=== PATIENT | female | born 1980 | race American Indian/Alaskan Native ===

== ENCOUNTER 2016-08-04 03:19 | Emergency (ER) | payer BC ==
[2016-08-04] MEDS ORDERED: TORADOL IM ONE (04:25)
[2016-08-04] MEDS ORDERED: ZITHROMAX PO ONE (04:28)
[2016-08-04] MEDS ORDERED: NORCO 5/325 ONE (04:33)
[2016-08-04] MEDS ORDERED: PERCOCET 5/325 PO ONE (04:36)
[2016-08-04 04:53] VITALS: BP 128/90
--- NOTE | 2016-08-04 05:03 | Emergency Department Report ---
ED ENT HPI - General Chief complaint: Upper Respiratory Infection Stated complaint: HEADACHE/FACIAL/EAR PAIN Time Seen by Provider: 08/04/16 04:12 Source: patient Mode of arrival: Ambulatory Limitations: No Limitations - History of Present Illness Initial comments: 36 yo female with no significant past medical history presents to the hospital complaining of right ear pain 2 days. Pain became severe today and radiating to right face, eye, and neck. Pain is constant, 8/10 intensity, worse with palpation. No reports of fever, trauma, or nausea or vomiting. Pt does not swim - Related Data Previous Rx's Medication Instructions Recorded Last Taken Type Amoxicillin/K Clav Tab [Augmentin 1 tab PO Q12HR #20 tab 07/06/15 Unknown Rx 875 mg] Loratadine [Claritin] 10 mg PO DAILY #30 tablet 07/06/15 Unknown Rx Prednisone [predniSONE 10 mg 10 mg PO .TAPER #1 tab.ds.pk 07/06/15 Unknown Rx (6-Day Pack, 21 Tabs)] Promethazine /Codeine 5 ml PO Q6H PRN #120 ml 07/06/15 Unknown Rx [Phenergan/Codeine 6.25-10 mg/5 ml] Azithromycin [Zithromax Z-LAYTON] 1 dose PO DAILY 5 Days 08/04/16 Unknown Rx Ibuprofen [Motrin] 800 mg PO Q8HR PRN #30 tablet 08/04/16 Unknown Rx Ofloxacin 0.3% [Floxin Otic] 10 drop OD DAILY #1 bottle 08/04/16 Unknown Rx Oxycodone HCl/Acetaminophen 1 each PO Q4-6H PRN #20 tablet 08/04/16 Unknown Rx [Percocet 10/325 mg] Allergies Allergy/AdvReac Type Severity Reaction Status Date / Time aspirin Allergy Swelling Verified 11/05/13 21:15 codeine Allergy Swelling Verified 11/05/13 21:15 Penicillins Allergy Swelling Verified 08/04/16 03:27 ED Dental HPI - General Chief complaint: Upper Respiratory Infection Stated complaint: HEADACHE/FACIAL/EAR PAIN Time Seen by Provider: 08/04/16 04:12 Source: patient Mode of arrival: Ambulatory Limitations: No Limitations - Related Data Previous Rx's Medication Instructions Recorded Last Taken Type Amoxicillin/K Clav Tab [Augmentin 1 tab PO Q12HR #20 tab 07/06/15 Unknown Rx 875 mg] Loratadine [Claritin] 10 mg PO DAILY #30 tablet 07/06/15 Unknown Rx Prednisone [predniSONE 10 mg 10 mg PO .TAPER #1 tab.ds.pk 07/06/15 Unknown Rx (6-Day Pack, 21 Tabs)] Promethazine /Codeine 5 ml PO Q6H PRN #120 ml 07/06/15 Unknown Rx [Phenergan/Codeine 6.25-10 mg/5 ml] Azithromycin [Zithromax Z-LAYTON] 1 dose PO DAILY 5 Days 08/04/16 Unknown Rx Ibuprofen [Motrin] 800 mg PO Q8HR PRN #30 tablet 08/04/16 Unknown Rx Ofloxacin 0.3% [Floxin Otic] 10 drop OD DAILY #1 bottle 08/04/16 Unknown Rx Oxycodone HCl/Acetaminophen 1 each PO Q4-6H PRN #20 tablet 08/04/16 Unknown Rx [Percocet 10/325 mg] Allergies Allergy/AdvReac Type Severity Reaction Status Date / Time aspirin Allergy Swelling Verified 11/05/13 21:15 codeine Allergy Swelling Verified 11/05/13 21:15 Penicillins Allergy Swelling Verified 08/04/16 03:27 ED Review of Systems ROS: Stated complaint: HEADACHE/FACIAL/EAR PAIN Other details as noted in HPI Comment: All other systems reviewed and negative Other: Constitutional: No fevers chills Eyes: No eye pain visual changes ENT:as per hpi Neck: as per hpi Respiratory: Denies cough wheezing shortness of breath Cardiovascular: Denies chest pain, palpitations, syncope GI: Denies abdominal pain, nausea, vomiting, diarrhea : Denies dysuria Musculoskeletal: Denies back pain Skin: Denies rash Neurologic: Denies headache, numbness, weakness Psychiatric: Denies suicidal ideation, hallucinations ED Past Medical Hx - Past Medical History Previous Medical History?: No Additional medical history: ectopic preg, Vaginal delivery x 1 - Surgical History Past Surgical History?: Yes Additional Surgical History: ectopic - Social History Smoking Status: Current Some Day Smoker Substance Use Type: Alcohol - Medications Home Medications: Home Medications Medication Instructions Recorded Confirmed Last Taken Type Amoxicillin/K Clav Tab [Augmentin 1 tab PO Q12HR #20 tab 07/06/15 Unknown Rx 875 mg] Loratadine [Claritin] 10 mg PO DAILY #30 tablet 07/06/15 Unknown Rx Prednisone [predniSONE 10 mg 10 mg PO .TAPER #1 tab.ds.pk 07/06/15 Unknown Rx (6-Day Pack, 21 Tabs)] Promethazine /Codeine 5 ml PO Q6H PRN #120 ml 07/06/15 Unknown Rx [Phenergan/Codeine 6.25-10 mg/5 ml] Azithromycin [Zithromax Z-LAYTON] 1 dose PO DAILY 5 Days 08/04/16 Unknown Rx Ibuprofen [Motrin] 800 mg PO Q8HR PRN #30 tablet 08/04/16 Unknown Rx Ofloxacin 0.3% [Floxin Otic] 10 drop OD DAILY #1 bottle 08/04/16 Unknown Rx Oxycodone HCl/Acetaminophen 1 each PO Q4-6H PRN #20 tablet 08/04/16 Unknown Rx [Percocet 10/325 mg] ED Physical Exam - General Limitations: No Limitations - Other Other exam information: General: No limitations, patient is alert in no acute distress Head exam: Atraumatic, normocephalic Eyes exam: Normal appearance ENT: Moist mucous membrane, tenderness to palpation and pulling of the right ear. Tenderness during examination of the ear canal. Mild erythema noted. Mild erythema to the TM. tenderness extends along right lateral neck/ Sternocleidomastoid muscle. No swelling, erythema, or warmth noted. Neck exam: Normal inspection, full range of motion, no meningismus nontender Respiratory exam: Clear to auscultation bilateral, no wheezes, rales, crackles Cardiovascular: Normal rate and rhythm, normal heart sounds Abdomen: Soft, nondistended, and nontender, with normal bowel sounds, no rebound, or guarding Extremity: Full range of motion normal inspection no deformity Back: Normal Inspection, full range of motion, no tenderness Neurologic: Alert, oriented x3, cranial nerves intact, no motor or sensory deficit Psychiatric: normal affect, normal mood Skin: Warm, dry, intact ED Course Vital Signs 08/04/16 08/04/16 08/04/16 03:27 04:48 04:51 Temperature 97.7 F 97.7 F Pulse Rate 101 H 73 Respiratory 20 20 20 Rate Blood Pressure 146/104 Blood Pressure 128/90 [Left] O2 Sat by Pulse 100 97 Oximetry 08/04/16 04:55 Temperature Pulse Rate Respiratory 20 Rate Blood Pressure Blood Pressure [Left] O2 Sat by Pulse 97 Oximetry - Reevaluation(s) Reevaluation #1: 08/04/16 05:01 Patient given IM Toradol since she states she can tolerate Motrin. No allergic reaction noted. Patient also given Percocet 5 mg and will have her pick her up from the hospital since she drove. Gentamicin also ordered. ED Medical Decision Making - Medical Decision Making Plan to treat with antibiotic for otitis media and external given significant tenderness to right ear canal. Percocet will be prescribed for pain. NO signs of allergic reaction at this time - Differential Diagnosis otitis media/externa, sinusitis, mastoiditis Critical Care Time: No Critical care attestation.: If time is entered above; I have spent that time in minutes in the direct care of this critically ill patient, excluding procedure time. ED Disposition Clinical Impression: Right ear pain, Otitis media Otitis externa Qualifiers: Laterality: right Disposition: DISCHARGED TO HOME OR SELFCARE Is pt being admited?: No Does the pt Need Aspirin: No Condition: Stable Instructions: Earache (ED) Additional Instructions: Take the medication as prescribed. Return if symptoms worsen. Prescriptions: Azithromycin [Zithromax Z-LAYTON] 1 dose PO DAILY 5 Days Ibuprofen [Motrin] 800 mg PO Q8HR PRN #30 tablet PRN Reason: Pain Ofloxacin 0.3% [Floxin Otic] 10 drop OD DAILY #1 bottle Oxycodone HCl/Acetaminophen [Percocet 10/325 mg] 1 each PO Q4-6H PRN #20 tablet PRN Reason: Pain Referrals: PRIMARY CARE, [Primary Care Provider] - 3-5 Days MARIELA HENRY MD [Staff Physician] - 2-3 Days (Ear nose and throat doctor ) Time of Disposition: 05:48
== END 2016-08-04 06:38 | disposition home or self-care (01) ==
LOC: ED 03:19
DX: H60.91 Unspecified otitis externa, right ear (principal); H66.91 Otitis media, unspecified, right ear; F17.200 Nicotine dependence, unspecified, uncomplicated; Z88.6 Allergy status to analgesic agent; Z88.0 Allergy status to penicillin
CPT/HCPCS: 93005; 93010; 96372; 99282; J1885

== ENCOUNTER 2016-09-20 15:35 | Emergency (ER) | payer BC ==
[2016-09-20 15:53] VITALS: BP 122/87
--- NOTE | 2016-09-20 16:21 | Emergency Department Report ---
Entered by ALFREDA MCKAY, acting as scribe for ISH RICHARDSON NP. Chief Complaint: Nausea/Vomiting/Diarrhea Stated Complaint: NAUSEA/VOMITTING/HEADACHE/CHEST PAIN/BODY PAIN Time Seen by Provider: 09/20/16 16:08 - HPI History of Present Illness: 36 year old female who is non toxic appearing, in no acute distress, presents with c/o mid-sternal chest pain that began this morning. She describes pain as sharp, heaviness that radiates to right shoulder. Associated symptoms include N/ V, body aches. She also c/o gradual onset right occipital SANCHEZ, non thunderclap, not worse SANCHEZ of her life. Pt reports Hx of similar chest pain and frequent SANCHEZ. Denies visual changes, shortness of breath. - ROS Review of Systems: Reports midsternal chest pain, radiated pain to right shoulder, N/V, gradual onset right occipital SANCHEZ, body aches. Denies visual changes, shortness of breath. - Exam Vital Signs: Vital Signs 09/20/16 15:47 Temperature 98.6 F Pulse Rate 107 H Respiratory 20 Rate Blood Pressure 122/87 O2 Sat by Pulse 100 Oximetry Physical Exam: Constitutional: Non toxic appearing, NAD. Cardiovascular: Normal rate and rhythm with normal S1/S2 sounds. Chest pain is not reproducible with palpation. No edema. Respiratory: No respiratory distress. Lung sounds clear to auscultation bilaterally. MSE screening note: Focused history and physical exam performed. Due to findings the following was ordered: EKG, CCK, Troponin, CBC, CMP, UA, serum HCG qualitative No ASA ordered due to allergy. ED Disposition for MSE Condition: Stable This documentation as recorded by the scribe,ALFREDA MCKAY,accurately reflects the service I personally performed and the decisions made by DYLAN dixon MARTIN, MARIA DE JESUS.
[2016-09-20 17:14] LABS: Basophils % (Auto) 0.2 % (0.0-1.8); Hemoglobin 14.4 gm/dl (10.1-14.3); Mean Corpuscular HGB Conc 34 % (30-34); Mean Corpuscular Hemoglobin 32 pg (28-32); Mean Corpuscular Volume 96 fl (79-97); Platelet Count 203 K/mm3 (140-440); Red Blood Count 4.48 M/mm3 (3.65-5.03); Red Cell Distribution Width 13.2 % (13.2-15.2); White Blood Count 5.2 K/mm3 (4.5-11.0)
[2016-09-20 17:22] LABS: Creatine Kinase MB 1.1 ng/mL (0.0-4.0)
[2016-09-20 17:24] LABS: Alanine Aminotransferase 12 units/L (7-56); Albumin 4.4 g/dL (3.9-5); Albumin/Globulin Ratio 1.5 %; Alkaline Phosphatase 70 units/L (35-129); Anion Gap 19 mmol/L; BUN/Creatinine Ratio 16.66; Blood Urea Nitrogen 10 mg/dL (7-17); Calcium 9.4 mg/dL (8.4-10.2); Carbon Dioxide 23 mmol/L (22-30); Chloride 102.4 mmol/L (98-107); Creatine Kinase 124 units/L (30-135); Glucose 91 mg/dL (65-100); Potassium 3.9 mmol/L (3.6-5.0); Sodium 140 mmol/L (137-145); Total Protein 7.3 g/dL (6.3-8.2)
[2016-09-20 17:33] LABS: Bilirubin,Urine NEG (Negative); Blood,Urine NEG (Negative); Ketones,Urine NEG (Negative); Leukocyte Esterase,Urine NEG (Negative); Mucus,Urine 2+ /HPF; Nitrite,Urine NEG (Negative); Protein,Urine <15 mg/dL mg/dL (Negative); Urobilinogen,Urine < 2.0 mg/dL (<2.0); WBC,Urine < 1.0 /HPF (0.0-6.0)
--- NOTE | 2016-09-22 19:54 | ED Elopement Review ---
ED Pt Elopement review - Results review Lab results: Laboratory Tests 09/20/16 09/20/16 09/20/16 16:25 16:25 16:25 WBC 5.2 RBC 4.48 Hgb 14.4 H Hct 43.0 H MCV 96 MCH 32 MCHC 34 RDW 13.2 Plt Count 203 Lymph % (Auto) 14.3 [place] % (Auto) 3.0 Eos % (Auto) 0.0 Baso % (Auto) 0.2 Lymph # 0.7 L [place] # 0.2 Eos # 0.0 Baso # 0.0 Seg Neutrophils % 82.5 H Seg Neutrophils # 4.3 Sodium 140 Potassium 3.9 Chloride 102.4 Carbon Dioxide 23 Anion Gap 19 BUN 10 Creatinine 0.6 L Estimated GFR > 60 BUN/Creatinine Ratio 16.66 Glucose 91 Calcium 9.4 Total Bilirubin 1.10 AST 20 ALT 12 Alkaline Phosphatase 70 Total Creatine Kinase 124 CK-MB (CK-2) 1.1 CK-MB (CK-2) Rel Index 0.8 Troponin T < 0.010 Total Protein 7.3 Albumin 4.4 Albumin/Globulin Ratio 1.5 HCG, Qual Negative Urine Color Urine Turbidity Urine pH Ur Specific [place] Urine Protein Urine Glucose (UA) Urine Ketones Urine Blood Urine Nitrite Urine Bilirubin Urine Urobilinogen Ur Leukocyte Esterase Urine WBC (Auto) Urine RBC (Auto) U Epithel Cells (Auto) Urine Mucus 09/20/16 16:54 WBC RBC Hgb Hct MCV MCH MCHC RDW Plt Count Lymph % (Auto) [place] % (Auto) Eos % (Auto) Baso % (Auto) Lymph # [place] # Eos # Baso # Seg Neutrophils % Seg Neutrophils # Sodium Potassium Chloride Carbon Dioxide Anion Gap BUN Creatinine Estimated GFR BUN/Creatinine Ratio Glucose Calcium Total Bilirubin AST ALT Alkaline Phosphatase Total Creatine Kinase CK-MB (CK-2) CK-MB (CK-2) Rel Index Troponin T Total Protein Albumin Albumin/Globulin Ratio HCG, Qual Urine Color Yellow Urine Turbidity Clear Urine pH 5.0 Ur Specific [place] 1.027 Urine Protein <15 mg/dl Urine Glucose (UA) Neg Urine Ketones Neg Urine Blood Neg Urine Nitrite Neg Urine Bilirubin Neg Urine Urobilinogen < 2.0 Ur Leukocyte Esterase Neg Urine WBC (Auto) < 1.0 Urine RBC (Auto) 3.0 U Epithel Cells (Auto) 8.0 Urine Mucus 2+ - Call Back decision Pt Call Back Decision: No action required
== END 2016-09-21 02:07 | disposition left against medical advice (07) ==
LOC: ED 15:35
DX: R07.2 Precordial pain (principal); M79.1 Myalgia; R11.2 Nausea with vomiting, unspecified; Z53.21 Procedure and treatment not carried out due to patient leaving prior to being seen by health care provider
CPT/HCPCS: 36415; 80053; 81001; 82550; 82553; 84484; 84703; 85025; 93005; 93010

== ENCOUNTER 2016-09-21 10:11 | Emergency (ER) | payer BC ==
[2016-09-21 10:51] LABS: Basophils % (Auto) 0.9 % (0.0-1.8); Eosinophils % (Auto) 1.3 % (0.0-4.3); Hematocrit 41.9 % (30.3-42.9); Hemoglobin 13.8 gm/dl (10.1-14.3); Mean Corpuscular HGB Conc 33 % (30-34); Mean Corpuscular Hemoglobin 33 pg (28-32); Mean Corpuscular Volume 99 fl (79-97); Platelet Count 199 K/mm3 (140-440); Red Blood Count 4.25 M/mm3 (3.65-5.03); Red Cell Distribution Width 13.6 % (13.2-15.2); White Blood Count 2.8 K/mm3 (4.5-11.0)
[2016-09-21 12:07] LABS: Bilirubin,Urine NEG (Negative); Blood,Urine NEG (Negative); Ketones,Urine TR mg/dL (Negative); Leukocyte Esterase,Urine LG (Negative); Mucus,Urine 3+ /HPF; Nitrite,Urine NEG (Negative)
[2016-09-21 12:55] LABS: Alanine Aminotransferase 16 units/L (7-56); Albumin 4.3 g/dL (3.9-5); Albumin/Globulin Ratio 1.5 %; Alkaline Phosphatase 62 units/L (35-129); Anion Gap 17 mmol/L; BUN/Creatinine Ratio 14.28; Blood Urea Nitrogen 10 mg/dL (7-17); Calcium 9.4 mg/dL (8.4-10.2); Carbon Dioxide 23 mmol/L (22-30); Chloride 102.5 mmol/L (98-107); Glucose 95 mg/dL (65-100); Lipase 20 units/L (13-60); Potassium 3.8 mmol/L (3.6-5.0); Sodium 139 mmol/L (137-145); Total Protein 7.2 g/dL (6.3-8.2)
[2016-09-21] MEDS ORDERED: NACL ONE (17:57)
[2016-09-21] MEDS ORDERED: ZOFRAN IV ONE (17:57)
[2016-09-21] MEDS ORDERED: NACL 0.9% 1000 ML 1,000 ML IV ONE (17:57)
--- NOTE | 2016-09-21 18:07 | Emergency Department Report ---
HPI - General Chief Complaint: Abdominal Pain Time Seen by Provider: 09/21/16 17:48 - HPI HPI: Room 5 The patient is a 36-year-old female presenting with a chief complaint of body aches nausea vomiting and diarrhea. Patient states her symptoms began 2 days ago with a right-sided headache. Patient states that then developed body aches all over blurred vision. Patient says she didn't develop nausea vomiting and diarrhea. She states she has vomited over 10 times daily and is unable to keep anything down. Patient missed a fever 102F. Patient states she came to the ED yesterday but was not seen her left secondary to the long wait. The patient returns today with the same symptoms. Location: [see above] Duration: [see above] Quality: Aches Severity: Moderate Modifying factors: [see above] Context: [see above] Mode of transportation: The patient drove herself to the emergency department and there are no visitors present ED Past Medical Hx - Past Medical History Previous Medical History?: Yes Additional medical history: ectopic preg. 2000, Vaginal delivery x 1 - Surgical History Past Surgical History?: Yes Additional Surgical History: ectopic - Family History Family history: no significant - Social History Smoking Status: Current Some Day Smoker Substance Use Type: None (denies illicit drug use), Alcohol (occasional) - Medications Home Medications: Home Medications Medication Instructions Recorded Confirmed Last Taken Type Diphenoxylate HCl/Atropine 1 each PO QID PRN #20 tablet 09/21/16 Unknown Rx [Lomotil 2.5-0.025 mg Tablet] HYDROcodone/APAP 5-325 [Orient 1 - 2 each PO Q6HR PRN #14 tablet 09/21/16 Unknown Rx 5/325] Ondansetron [Zofran ODT TAB] 8 mg PO Q8HR #20 tab.rapdis 09/21/16 Unknown Rx Promethazine [Phenergan] [address] Q6HR PRN #5 supp.rect 09/21/16 Unknown Rx Sulfamethoxazole/Trimethoprim 1 each PO BID #14 tablet 09/21/16 Unknown Rx [Bactrim DS TAB] ED Review of Systems ROS: Stated complaint: BODY PAIN/NAUSEA/VOMITING Other details as noted in HPI Comment: All other systems reviewed and negative Constitutional: fever Eyes: denies: eye pain, eye discharge, vision change ENT: denies: ear pain, throat pain Respiratory: denies: cough, shortness of breath, wheezing Cardiovascular: denies: chest pain, palpitations Endocrine: no symptoms reported Gastrointestinal: abdominal pain, nausea, vomiting, diarrhea Genitourinary: denies: urgency, dysuria, discharge Musculoskeletal: myalgia Skin: denies: rash, lesions Neurological: denies: headache, weakness, paresthesias Psychiatric: denies: anxiety, depression Hematological/Lymphatic: denies: easy bleeding, easy bruising Physical Exam - Physical Exam Vital Signs: Vital Signs 09/21/16 10:30 Temperature 97.5 F L Pulse Rate 90 Respiratory 18 Rate Blood Pressure 120/90 O2 Sat by Pulse 99 Oximetry Physical Exam: GENERAL: The patient is well-developed well-nourished female lying on stretcher appearing to be in mild discomfort. [] HEENT: Normocephalic. Atraumatic. Extraocular motions are intact. Patient has moist mucous membranes. NECK: Supple. No meningitic signs are noted. No nuchal rigidity CHEST/LUNGS: Clear to auscultation. There is no respiratory distress noted. HEART/CARDIOVASCULAR: Regular. There is no tachycardia. There is no gallop rub or murmur. ABDOMEN: Abdomen is soft, mild epigastric tenderness to palpation. No rebound or guarding. No tenderness elsewhere in the abdomen. Patient has normal bowel sounds. There is no abdominal distention. SKIN: There is no rash. There is no edema. There is no diaphoresis. NEURO: The patient is awake, alert, and oriented. The patient is cooperative. The patient has no focal neurologic deficits. The patient has normal speech and cranial nerves II through XII grossly intact, no drift MUSCULOSKELETAL: There is no evidence of acute injury. ED Course Vital Signs 09/21/16 10:30 Temperature 97.5 F L Pulse Rate 90 Respiratory 18 Rate Blood Pressure 120/90 O2 Sat by Pulse 99 Oximetry - Reevaluation(s) Reevaluation #1: 09/21/16 21:17 Patient tolerating po ED Medical Decision Making - Lab Data Result diagrams: 09/21/16 10:37 09/21/16 10:37 Laboratory Tests 09/21/16 09/21/16 09/21/16 10:37 10:37 10:37 WBC 2.8 L RBC 4.25 Hgb 13.8 Hct 41.9 MCV 99 H D MCH 33 H MCHC 33 RDW 13.6 Plt Count 199 Lymph % (Auto) 51.5 H [place] % (Auto) 9.4 H Eos % (Auto) 1.3 Baso % (Auto) 0.9 Lymph # 1.4 [place] # 0.3 Eos # 0.0 Baso # 0.0 Seg Neutrophils % 36.9 L Seg Neutrophils # 1.0 L Sodium 139 Potassium 3.8 Chloride 102.5 Carbon Dioxide 23 Anion Gap 17 BUN 10 Creatinine 0.7 Estimated GFR > 60 BUN/Creatinine Ratio 14.28 Glucose 95 Calcium 9.4 Total Bilirubin 0.60 AST 25 ALT 16 Alkaline Phosphatase 62 Total Creatine Kinase 82 CK-MB (CK-2) < 1.0 CK-MB (CK-2) Rel Index 1.2 Troponin T Total Protein 7.2 Albumin 4.3 Albumin/Globulin Ratio 1.5 Lipase 20 Urine Color Urine Turbidity Urine pH Ur Specific [place] Urine Protein Urine Glucose (UA) Urine Ketones Urine Blood Urine Nitrite Urine Bilirubin Urine Urobilinogen Ur Leukocyte Esterase Urine WBC (Auto) Urine RBC (Auto) U Epithel Cells (Auto) Urine Mucus Urine HCG, Qual 09/21/16 09/21/16 10:37 Unknown WBC RBC Hgb Hct MCV MCH MCHC RDW Plt Count Lymph % (Auto) [place] % (Auto) Eos % (Auto) Baso % (Auto) Lymph # [place] # Eos # Baso # Seg Neutrophils % Seg Neutrophils # Sodium Potassium Chloride Carbon Dioxide Anion Gap BUN Creatinine Estimated GFR BUN/Creatinine Ratio Glucose Calcium Total Bilirubin AST ALT Alkaline Phosphatase Total Creatine Kinase CK-MB (CK-2) CK-MB (CK-2) Rel Index Troponin T < 0.010 Total Protein Albumin Albumin/Globulin Ratio Lipase Urine Color [place] Urine Turbidity Cloudy Urine pH 5.0 Ur Specific [place] 1.031 H Urine Protein 30 mg/dl Urine Glucose (UA) Neg Urine Ketones Tr Urine Blood Neg Urine Nitrite Neg Urine Bilirubin Neg Urine Urobilinogen 2.0 Ur Leukocyte Esterase Lg Urine WBC (Auto) 16.0 H Urine RBC (Auto) 15.0 U Epithel Cells (Auto) 36.0 H Urine Mucus 3+ Urine HCG, Qual Negative - Differential Diagnosis pancreatitis, gastroenteritis, peptic ulcer disease, ICH Critical care attestation.: If time is entered above; I have spent that time in minutes in the direct care of this critically ill patient, excluding procedure time. ED Disposition Clinical Impression: Gastroenteritis, UTI (urinary tract infection), Leukopenia Disposition: DISCHARGED TO HOME OR SELFCARE Is pt being admited?: No Does the pt Need Aspirin: No Condition: Stable Instructions: Abdominal Pain (ED), Acute Nausea and Vomiting (ED), Gastroenteritis (ED) Additional Instructions: Return to the emergency department immediately should you develop worsening symptoms, fever, inability to tolerate food or liquid or any other concerns. Prescriptions: Diphenoxylate HCl/Atropine [Lomotil 2.5-0.025 mg Tablet] 1 each PO QID PRN #20 tablet PRN Reason: Diarrhea HYDROcodone/APAP 5-325 [Orient 5/325] 1 - 2 each PO Q6HR PRN #14 tablet PRN Reason: Pain Ondansetron [Zofran ODT TAB] 8 mg PO Q8HR #20 tab.rapdis Promethazine [Phenergan] [address] Q6HR PRN #5 supp.rect PRN Reason: Vomiting Sulfamethoxazole/Trimethoprim [Bactrim DS TAB] 1 each PO BID #14 tablet Referrals: HO MALDONADO MD [Staff Physician] - 3-5 Days (Dr. Maldonado is a primary physician. Please follow up with him to be established as a patient) HUGH LYNCH MD [Staff Physician] - 3-5 Days (Dex is a harp maker. Please follow up with him for further evaluation) AVERY ALFARO MD [Staff Physician] - 3-5 Days ( is a dining chair seat cushion trimmer. Please follow up with him for further evaluation of your low white blood cell count (leukopenia).) Time of Disposition: 21:24
[2016-09-21 18:47] LABS: Creatine Kinase 82 units/L (30-135)
[2016-09-21 18:57] LABS: Creatine Kinase MB < 1.0 ng/mL (0.0-4.0)
--- NOTE | 2016-09-21 19:05 | Cat Scan Report ---
FINAL REPORT EXAM: CT HEAD/BRAIN WO CON HISTORY: headache nausea vomiting TECHNIQUE: CT imaging acquired through the head without intravenous contrast. Transaxial reformations are provided. PRIORS: None. FINDINGS: The ventricles, cisterns and sulci are normal. No intraparenchymal or extra-axial mass, hemorrhage, or mass effect. [place] and white-matter differentiation is normal. Normal spherical shape of the globes. Paranasal sinuses and mastoid air cells are clear. No skull or facial fracture visualized. IMPRESSION: No acute intracranial abnormality.
--- NOTE | 2016-09-21 19:11 | Cat Scan Report ---
FINAL REPORT EXAM: CT ABDOMEN PELVIS W CON HISTORY: epigastric abdominal pain intractable n/v TECHNIQUE: CT images are acquired through the Abdomen and Pelvis arterial and delayed phases following intravenous administration of contrast. Transaxial, coronal and sagittal reformations are provided. PRIORS: None FINDINGS: Partially visualized intrathoracic contents are unremarkable. The liver, gallbladder, pancreas, spleen, and adrenal glands are normal. Kidneys show no worrisome lesions, hydronephrosis, or calculi. Urinary bladder is normal. Small and large bowel are normal in caliber. There is fluid within the ascending and transverse colon. No pericolonic stranding or edema. Appendix is normal. No free air, free fluid, or lymphadenopathy identified. Aorta is normal in course and caliber. Anteverted uterus. Small volume of pelvic ascites is likely physiologic. Functional left ovarian cysts Superficial soft tissues are unremarkable. No acute or aggressive appearing skeletal findings. IMPRESSION: Fluid within the colon may be infectious or inflammatory in etiology. No pericolonic stranding or focal fluid collection to suggest abscess formation. No pneumoperitoneum.
[2016-09-21] MEDS ORDERED: TORADOL IV ONE (19:20)
[2016-09-21 21:38] VITALS: BP 105/63
== END 2016-09-21 21:51 | disposition home or self-care (01) ==
LOC: ED 10:11
DX: R19.7 Diarrhea, unspecified (principal); K52.9 Noninfective gastroenteritis and colitis, unspecified; N39.0 Urinary tract infection, site not specified; D72.819 Decreased white blood cell count, unspecified; F17.200 Nicotine dependence, unspecified, uncomplicated
CPT/HCPCS: 36415; 70450; 74177; 80053; 81001; 81025; 82550; 82553; 83690; 84484; 85025; 96361; 96374; 96375; 99284; J1885; J2405; J7030; Q9967

== ENCOUNTER 2017-05-26 21:46 | Emergency (ER) | payer BC ==
--- NOTE | 2017-05-26 22:58 | Emergency Department Report ---
ED Abdominal Pain HPI - General Chief Complaint: Abdominal Pain Stated Complaint: BODYACHE Time Seen by Provider: 05/26/17 22:55 Source: patient Mode of arrival: Ambulatory Limitations: No Limitations - History of Present Illness Initial Comments: Patient is a 37-year-old female who presents to emergency room with abdominal pain 1 day. Patient complains of nausea, vomiting, headache, and low-grade fever. He states pain is worsening. She states LMP is 6 weeks ago. MD Complaint: abdominal pain -: Sudden Location: LLQ, epigastric Radiation: none Severity: severe Severity scale (0 -10): 10 Quality: stabbing Consistency: constant Improves With: rest Worsens With: movement Associated Symptoms: nausea, vomiting - Related Data LMP (females 10-50): other (6 weeks ago. Patient is normally regular) Previous Rx's Medication Instructions Recorded Last Taken Type Diphenoxylate HCl/Atropine 1 each PO QID PRN #20 tablet 09/21/16 Unknown Rx [Lomotil 2.5-0.025 mg Tablet] HYDROcodone/APAP 5-325 [[place] 1 - 2 each PO Q6HR PRN #14 tablet 09/21/16 Unknown Rx 5/325] Ondansetron [Zofran ODT TAB] 8 mg PO Q8HR #20 tab.rapdis 09/21/16 Unknown Rx Promethazine [Phenergan] 25 mg MS Q6HR PRN #5 supp.rect 09/21/16 Unknown Rx Sulfamethoxazole/Trimethoprim 1 each PO BID #14 tablet 09/21/16 Unknown Rx [Bactrim DS TAB] Ciprofloxacin HCl [Cipro] 500 mg PO Q12HR 10 Days #20 tablet 05/27/17 Unknown Rx HYDROcodone/ACETAMINOPHEN [[place] 1 each PO Q6HR PRN #12 tablet 05/27/17 Unknown Rx 5-325 Tablet] Ondansetron [Zofran Odt] 4 mg PO Q8HR PRN #15 tab.rapdis 05/27/17 Unknown Rx Allergies Allergy/AdvReac Type Severity Reaction Status Date / Time aspirin Allergy Swelling Verified 11/05/13 21:15 codeine Allergy Swelling Verified 11/05/13 21:15 Penicillins Allergy Swelling Verified 08/04/16 03:27 ED Review of Systems ROS: Stated complaint: BODYACHE Other details as noted in HPI Comment: All other systems reviewed and negative Constitutional: no symptoms reported, fever Eyes: denies: eye pain, eye discharge, vision change ENT: denies: ear pain, throat pain Respiratory: denies: cough, shortness of breath, wheezing Cardiovascular: denies: chest pain, palpitations Endocrine: no symptoms reported Gastrointestinal: as per HPI, abdominal pain, nausea, vomiting. denies: diarrhea Genitourinary: denies: urgency, dysuria, discharge Musculoskeletal: denies: back pain, joint swelling, arthralgia Skin: denies: rash, lesions Neurological: denies: headache, weakness, paresthesias Psychiatric: denies: anxiety, depression Hematological/Lymphatic: denies: easy bleeding, easy bruising ED Past Medical Hx - Past Medical History Previous Medical History?: No Additional medical history: ectopic preg. 2001, Vaginal delivery x 1 - Surgical History Past Surgical History?: Yes Additional Surgical History: ectopic - Family History Family history: no significant - Social History Smoking Status: Never Smoker Substance Use Type: None - Medications Home Medications: Home Medications Medication Instructions Recorded Confirmed Last Taken Type Diphenoxylate HCl/Atropine 1 each PO QID PRN #20 tablet 09/21/16 Unknown Rx [Lomotil 2.5-0.025 mg Tablet] HYDROcodone/APAP 5-325 [[place] 1 - 2 each PO Q6HR PRN #14 tablet 09/21/16 Unknown Rx 5/325] Ondansetron [Zofran ODT TAB] 8 mg PO Q8HR #20 tab.rapdis 09/21/16 Unknown Rx Promethazine [Phenergan] 25 mg MS Q6HR PRN #5 supp.rect 09/21/16 Unknown Rx Sulfamethoxazole/Trimethoprim 1 each PO BID #14 tablet 09/21/16 Unknown Rx [Bactrim DS TAB] Ciprofloxacin HCl [Cipro] 500 mg PO Q12HR 10 Days #20 tablet 05/27/17 Unknown Rx HYDROcodone/ACETAMINOPHEN [[place] 1 each PO Q6HR PRN #12 tablet 05/27/17 Unknown Rx 5-325 Tablet] Ondansetron [Zofran Odt] 4 mg PO Q8HR PRN #15 tab.rapdis 05/27/17 Unknown Rx ED Physical Exam - General Limitations: No Limitations General appearance: alert, in no apparent distress - Head Head exam: Present: atraumatic, normocephalic - Eye Eye exam: Present: normal appearance - ENT ENT exam: Present: mucous membranes moist - Neck Neck exam: Present: normal inspection - Respiratory Respiratory exam: Present: normal lung sounds bilaterally. Absent: respiratory distress - Cardiovascular Cardiovascular Exam: Present: regular rate, normal rhythm. Absent: systolic murmur, diastolic murmur, rubs, gallop - GI/Abdominal GI/Abdominal exam: Present: soft, tenderness (epigastric tenderness and left lower quadrant tenderness), normal bowel sounds - Extremities Exam Extremities exam: Present: normal inspection - Back Exam Back exam: Present: normal inspection - Neurological Exam Neurological exam: Present: alert, oriented X3 - Psychiatric Psychiatric exam: Present: normal affect, normal mood - Skin Skin exam: Present: warm, dry, intact, normal color. Absent: rash ED Course Vital Signs 05/26/17 05/26/17 05/27/17 22:02 22:48 00:27 Temperature 98.6 F 99.4 F 100.1 F H Pulse Rate 117 H 94 H 93 H Respiratory 16 16 16 Rate Blood Pressure 129/83 Blood Pressure 109/81 118/79 [Right] O2 Sat by Pulse 97 100 99 Oximetry 05/27/17 05/27/17 05/27/17 00:45 01:15 01:45 Temperature Pulse Rate Respiratory 16 16 16 Rate Blood Pressure Blood Pressure [Right] O2 Sat by Pulse Oximetry 05/27/17 05/27/17 05/27/17 01:59 02:17 02:47 Temperature 98.7 F Pulse Rate 85 Respiratory 16 16 16 Rate Blood Pressure Blood Pressure 106/80 [Right] O2 Sat by Pulse 98 Oximetry 05/27/17 03:26 Temperature 98.3 F Pulse Rate 77 Respiratory 16 Rate Blood Pressure Blood Pressure 107/77 [Right] O2 Sat by Pulse 98 Oximetry ED Medical Decision Making - Lab Data Result diagrams: 05/26/17 22:56 05/26/17 22:56 - Radiology Data Radiology results: report reviewed - Medical Decision Making All labs and diagnostics reviewed with patient. - Differential Diagnosis GASTROENTERITIS, GASTRITIS, VIRAL SYNDROME. URI. Critical care attestation.: If time is entered above; I have spent that time in minutes in the direct care of this critically ill patient, excluding procedure time. ED Disposition Clinical Impression: Fever, Abdominal pain, Nausea & vomiting, UTI (urinary tract infection), Gastroenteritis Disposition: DC-01 TO HOME OR SELFCARE Is pt being admited?: No Does the pt Need Aspirin: No Condition: Stable Instructions: Urinary Tract Infection in Women (ED), Gastroenteritis (ED), Acute Nausea and Vomiting (ED), Abdominal Pain (ED) Additional Instructions: Patient to follow up with PCP in 3-5 days. Patient to return to ER if condition worsens. Patient increase water. Patient take medicines as directed. She'll take Tylenol and ibuprofen as needed. Prescriptions: Ciprofloxacin HCl [Cipro] 500 mg PO Q12HR 10 Days #20 tablet HYDROcodone/ACETAMINOPHEN [[place] 5-325 Tablet] 1 each PO Q6HR PRN #12 tablet PRN Reason: Pain Ondansetron [Zofran Odt] 4 mg PO Q8HR PRN #15 tab.rapdis PRN Reason: Nausea And Vomiting Referrals: PRIMARY CARE,MD [Primary Care Provider] - 3-5 Days Forms: Work/School Release Form(ED) Time of Disposition: 02:06
[2017-05-26 23:10] LABS: Bilirubin,Urine NEG (Negative); Blood,Urine SM (Negative); Color,Urine Yellow (Yellow); Mucus,Urine FEW /HPF; Nitrite,Urine NEG (Negative); Protein,Urine <15 mg/dL mg/dL (Negative); Urobilinogen,Urine < 2.0 mg/dL (<2.0)
[2017-05-26 23:12] LABS: Basophils % (Auto) 0.2 % (0.0-1.8); Hematocrit 38.8 % (30.3-42.9); Hemoglobin 12.9 gm/dl (10.1-14.3); Lymphocytes # (Auto) 0.5 K/mm3 (1.2-5.4); Lymphocytes % (Auto) 9.8 % (13.4-35.0); Mean Corpuscular HGB Conc 33 % (30-34); Mean Corpuscular Hemoglobin 32 pg (28-32); Mean Corpuscular Volume 96 fl (79-97); Monocytes # (Auto) 0.1 K/mm3 (0.0-0.8); Monocytes % (Auto) 2.8 % (0.0-7.3); Platelet Count 277 K/mm3 (140-440); Red Blood Count 4.04 M/mm3 (3.65-5.03)
[2017-05-26 23:12] LABS: HCG Qualitative,Urine Negative (Negative)
[2017-05-27] MEDS ORDERED: TYLENOL PO ONE (00:33)
[2017-05-27] MEDS ORDERED: ZOFRAN IV ONE (00:33)
[2017-05-27] MEDS ORDERED: DILAUDID IV ONE ×2 (00:33→02:00)
--- NOTE | 2017-05-27 00:49 | Cat Scan Report ---
FINAL REPORT EXAM: CT ABDOMEN PELVIS WO CON HISTORY: abd pain TECHNIQUE: Helical CT scan through the abdomen and pelvis without contrast. Images are reconstructed in the sagittal and coronal planes. PRIORS: 09/21/2016 FINDINGS: Solid organ and bowel evaluation is limited without intravenous contrast. Bowel evaluation is limited without oral contrast. The lung bases are clear. The liver, gallbladder, pancreas, spleen and adrenal glands appear normal. The kidneys appear grossly normal. The pelvic organs appear grossly normal. There is a small amount of free pelvic fluid likely physiologic in nature. The stomach appears grossly within normal limits. There are no abnormally dilated loops of bowel or acute inflammatory changes. A normal-appearing appendix is identified. The abdominal aorta has a normal diameter. The bones and subcutaneous soft tissues are unremarkable for age. IMPRESSION: No acute findings in the abdomen/pelvis
[2017-05-27 00:51] LABS: BUN/Creatinine Ratio 20; Blood Urea Nitrogen 12 mg/dL (7-17); Hemolysis Index 15; Lipase 14 units/L (13-60)
[2017-05-27] MEDS ORDERED: LEVAQUIN PO ONE (02:00)
[2017-05-27] MEDS ORDERED: LACTATED RINGERS 1,000 ML IV ONE (02:00)
[2017-05-27 03:26] VITALS: BP 107/77
== END 2017-05-27 03:26 | disposition home or self-care (01) ==
LOC: ED 21:46
DX: N39.0 Urinary tract infection, site not specified (principal); K52.9 Noninfective gastroenteritis and colitis, unspecified; Z88.6 Allergy status to analgesic agent; Z88.0 Allergy status to penicillin
CPT/HCPCS: 36415; 74176; 80048; 81001; 81025; 82150; 83690; 85025; 87116; 87400; 87430; 96361; 96374; 96375; 96376; 99284; J1170; J2405; J7120

== ENCOUNTER 2017-10-17 08:52 | Emergency (ER) | payer BC ==
[2017-10-17 09:52] LABS: Basophils % (Auto) 0.8 % (0.0-1.8); Eosinophils # (Auto) 0.1 K/mm3 (0.0-0.4); Eosinophils % (Auto) 3.7 % (0.0-4.3); Hematocrit 40.1 % (30.3-42.9); Hemoglobin 13.1 gm/dl (10.1-14.3); Lymphocytes % (Auto) 53.2 % (13.4-35.0); Mean Corpuscular HGB Conc 33 % (30-34); Mean Corpuscular Hemoglobin 30 pg (28-32); Mean Corpuscular Volume 92 fl (79-97); Monocytes # (Auto) 0.2 K/mm3 (0.0-0.8); Monocytes % (Auto) 5.8 % (0.0-7.3); Platelet Count 224 K/mm3 (140-440); Red Blood Count 4.36 M/mm3 (3.65-5.03); Red Cell Distribution Width 16.9 % (13.2-15.2)
[2017-10-17 10:19] LABS: Alanine Aminotransferase 16 units/L (7-56); BUN/Creatinine Ratio 20; Blood Urea Nitrogen 12 mg/dL (7-17); Calcium 9.1 mg/dL (8.4-10.2); Hemolysis Index 9
--- NOTE | 2017-10-17 10:46 | XRay Report ---
ROUTINE CHEST, TWO VIEWS: HISTORY: Shortness of breath. The trachea, heart, mediastinal contour, lung wolff and bony thorax are unremarkable. IMPRESSION: Unremarkable chest x-ray.
[2017-10-17] MEDS ORDERED: NORCO 5/325 PO ONE (10:55)
--- NOTE | 2017-10-17 10:58 | Emergency Department Report ---
Chief Complaint: Chest Pain Stated Complaint: CHEST PAIN,HEADACHE/NAUSEA/SOB Time Seen by Provider: 10/17/17 10:45 - HPI History of Present Illness: 37-year-old female, who works here at [employer], presents with the complaint of a three-day history of some midsternal right-sided chest pain with some radiation towards the back. Occasionally she will have some shortness of breath. She denies any nausea, vomiting, fever, diaphoresis. No recent travel or sick contacts at home. She denies any past medical history. She is an occasional smoker, about once per week. She denies any illicit drug use. She has a family history significant for early cardiac disease in which her mother had a MN in her late 40s. - ROS Review of Systems: Positive for chest pain, back pain and occasional shortness of breath Negative for nausea, vomiting, diaphoresis, abdominal pain - Exam Vital Signs: Vital Signs 10/17/17 09:31 Temperature 97.8 F Pulse Rate 65 Respiratory 18 Rate Blood Pressure 128/79 O2 Sat by Pulse 98 Oximetry Physical Exam: Heart and lungs sounds are normal to auscultation. Patient appears uncomfortable but in no acute distress. MSE screening note: Focused history and physical exam performed. Due to findings the following was ordered: So far the patient's blood work is unremarkable including a negative troponin. Chest x-ray does not show any acute process. However the EKG today shows some T -wave inversions in a few of the leads when compared to the last EKG from July 2016. We will obtain a second troponin, a d-dimer, repeat EKG. She has been given a [place] for discomfort. ED Medical Decision Making - Lab Data Result diagrams: 10/17/17 09:42 10/17/17 09:42 ED Disposition for MSE Condition: Stable
[2017-10-17] MEDS ORDERED: TYLENOL PO ONE (13:07)
--- NOTE | 2017-10-17 14:59 | Emergency Department Report ---
ED Chest Pain HPI - General Chief Complaint: Chest Pain Stated Complaint: CHEST PAIN,HEADACHE/NAUSEA/SOB Time Seen by Provider: 10/17/17 10:45 Source: patient Mode of arrival: Ambulatory Limitations: No Limitations - History of Present Illness Initial Comments: 37-year-old female past medical history smoker, family history of [place] in mother at age 55 and 48, father also of heart attack at age 72 presents with complaint of 3 days of intermittent right-sided and substernal chest pain. Some associated headache. Denies any current nausea but states she may have been nauseous earlier. Denies any diaphoresis. States it is slightly pleuritic in nature. Denies upper or lower extremity paresthesias blurry vision , dyspnea with exertion or any productive cough fevers or chills. Patient does not take aspirin. States she has allergies to aspirin codeine and penicillin. H she has broken out with hives to aspirin in the past. Pain is currently a 7 out of 10. States pain waxes and wanes regardless of exertions. No history of PE or DVT no recent travel no recent surgeries reported. Patient is not on control. MD Complaint: chest pain Onset/Timin -: days(s) Onset: during rest, during exertion Severity scale (0 -10): 7 Treatments Prior to Arrival: none - Related Data On Oral Contraceptives: No Previous Rx's Medication Instructions Recorded Last Taken Type Diphenoxylate HCl/Atropine 1 each PO QID PRN #20 tablet 09/21/16 Unknown Rx [Lomotil 2.5-0.025 mg Tablet] HYDROcodone/APAP 5-325 [[place] 1 - 2 each PO Q6HR PRN #14 tablet 09/21/16 Unknown Rx 5/325] Ondansetron [Zofran ODT TAB] 8 mg PO Q8HR #20 tab.rapdis 09/21/16 Unknown Rx Promethazine [Phenergan] 25 mg LA Q6HR PRN #5 supp.rect 09/21/16 Unknown Rx Sulfamethoxazole/Trimethoprim 1 each PO BID #14 tablet 09/21/16 Unknown Rx [Bactrim DS TAB] Ciprofloxacin HCl [Cipro] 500 mg PO Q12HR 10 Days #20 tablet 05/27/17 Unknown Rx HYDROcodone/ACETAMINOPHEN [[place] 1 each PO Q6HR PRN #12 tablet 01/13/18 Unknown Rx 5-325 Tablet] Ondansetron [Zofran Odt] 4 mg PO Q8HR PRN #15 tab.rapdis 05/27/17 Unknown Rx Acetaminophen [Acetaminophen TAB] 500 mg PO Q6HR PRN #25 tablet 10/17/17 Unknown Rx Allergies Allergy/AdvReac Type Severity Reaction Status Date / Time aspirin Allergy Swelling Verified 11/05/13 21:15 codeine Allergy Swelling Verified 11/05/13 21:15 Penicillins Allergy Swelling Verified 08/04/16 03:27 Heart Score - HEART Score History: Moderately suspicious EKG: Normal Age: < 45 Risk factors: 1-2 risk factors Troponin: < normal limit HEART Score: 2 ED Review of Systems ROS: Stated complaint: CHEST PAIN,HEADACHE/NAUSEA/SOB Other details as noted in HPI Constitutional: denies: chills, fever Eyes: denies: eye pain, eye discharge, vision change ENT: denies: ear pain, throat pain Respiratory: denies: cough, shortness of breath, wheezing Cardiovascular: chest pain. denies: palpitations Endocrine: no symptoms reported Gastrointestinal: denies: abdominal pain, nausea, diarrhea Genitourinary: denies: urgency, dysuria, discharge Musculoskeletal: denies: back pain, joint swelling, arthralgia Skin: denies: rash, lesions Neurological: denies: headache, weakness, paresthesias Psychiatric: denies: anxiety, depression Hematological/Lymphatic: denies: easy bleeding, easy bruising ED Past Medical Hx - Past Medical History Previous Medical History?: Yes Additional medical history: ectopic preg. 2001, Vaginal delivery x 1, Pneumonia - Surgical History Past Surgical History?: Yes Additional Surgical History: ectopic - Social History Smoking Status: Current Every Day Smoker Substance Use Type: Alcohol - Medications Home Medications: Home Medications Medication Instructions Recorded Confirmed Last Taken Type Diphenoxylate HCl/Atropine 1 each PO QID PRN #20 tablet 09/21/16 Unknown Rx [Lomotil 2.5-0.025 mg Tablet] HYDROcodone/APAP 5-325 [[place] 1 - 2 each PO Q6HR PRN #14 tablet 09/21/16 Unknown Rx 5/325] Ondansetron [Zofran ODT TAB] 8 mg PO Q8HR #20 tab.rapdis 09/21/16 Unknown Rx Promethazine [Phenergan] 25 mg LA Q6HR PRN #5 supp.rect 09/21/16 Unknown Rx Sulfamethoxazole/Trimethoprim 1 each PO BID #14 tablet 09/21/16 Unknown Rx [Bactrim DS TAB] Ciprofloxacin HCl [Cipro] 500 mg PO Q12HR 10 Days #20 tablet 05/27/17 Unknown Rx HYDROcodone/ACETAMINOPHEN [[place] 1 each PO Q6HR PRN #12 tablet 05/27/17 Unknown Rx 5-325 Tablet] Ondansetron [Zofran Odt] 4 mg PO Q8HR PRN #15 tab.rapdis 05/27/17 Unknown Rx Acetaminophen [Acetaminophen TAB] 500 mg PO Q6HR PRN #25 tablet 10/17/17 Unknown Rx ED Physical Exam - General Limitations: No Limitations General appearance: alert, in no apparent distress - Head Head exam: Present: atraumatic, normocephalic - Eye Eye exam: Present: normal appearance, PERRL, EOMI - ENT ENT exam: Present: mucous membranes moist - Neck Neck exam: Present: normal inspection - Respiratory Respiratory exam: Present: normal lung sounds bilaterally. Absent: respiratory distress - Cardiovascular Cardiovascular Exam: Present: regular rate, normal rhythm. Absent: systolic murmur, diastolic murmur, rubs, gallop - GI/Abdominal GI/Abdominal exam: Present: soft (abdomen soft nontender nondistended), normal bowel sounds - Extremities Exam Extremities exam: Present: normal inspection - Back Exam Back exam: Present: normal inspection - Neurological Exam Neurological exam: Present: alert, oriented X3, CN II-XII intact, normal gait - Psychiatric Psychiatric exam: Present: normal affect, normal mood - Skin Skin exam: Present: warm, dry, intact, normal color. Absent: rash ED Course Vital Signs 10/17/17 10/17/17 09:31 11:27 Temperature 97.8 F Pulse Rate 65 Respiratory 18 20 Rate Blood Pressure 128/79 O2 Sat by Pulse 98 Oximetry ANNETTE score - Annette Score Age > 65: (0) No Aspirin use within the Past 7 Days: (0) No 3 or more CAD Risk Factors: (0) No 2 or more Angina events in past 24 hrs: (1) Yes Known CAD with more than 50% Stenosis: (0) No Elevated Cardiac Markers: (0) No ST Deviation Greater than 0.5mm: (0) No ANNETTE Score: 1 ED Medical Decision Making - Lab Data Result diagrams: 10/17/17 09:42 10/17/17 09:42 - Medical Decision Making A/P: chest pain 1- trop neg x2, initial EKG shows T-wave inversions in V1 and V2 possible aVL second EKG was possible re-pole pattern. I discussed this with on-call cardiology policy services representative. As patient has low risk stratification for major adverse cardiac event by hard score patient to follow-up in office tomorrow with Dr. WILKINS for outpatient cardiac risk stratification follow-up. As pt has questionable ASA allergy will defer use of daily aspirin to outpatient channeling machine runner as she will be evaluated by them tomorrow. Patient given 1 dose in the ED 2-Tylenol when necessary for pain 3-x-ray unremarkable no widened mediastinum. D-dimer negative 4- patient to follow-up tomorrow. I discussed clinical course of action with her and patient is in agreement with this plan. I discussed case with attending before discharge Critical care attestation.: If time is entered above; I have spent that time in minutes in the direct care of this critically ill patient, excluding procedure time. ED Disposition Clinical Impression: Chest pain Qualifiers: Chest pain type: unspecified Qualified Code(s): R07.9 - Chest pain, unspecified Disposition: DC-01 TO HOME OR SELFCARE Is pt being admited?: No Does the pt Need Aspirin: No Condition: Stable Instructions: Chest Pain (ED) Additional Instructions: Patient to follow-up tomorrow 10/18/[address] Wilkins at [address] [facility] [address] [phone] Prescriptions: Acetaminophen [Acetaminophen TAB] 500 mg PO Q6HR PRN #25 tablet PRN Reason: Pain Referrals: [facility] [Provider Group] - 3-5 Days Forms: Work/School Release Form(ED) Time of Disposition: 15:15
[2017-10-17 15:25] VITALS: BP 137/88
== END 2017-10-17 15:31 | disposition home or self-care (01) ==
LOC: ED 08:52
DX: R07.9 Chest pain, unspecified (principal); J18.9 Pneumonia, unspecified organism; F17.200 Nicotine dependence, unspecified, uncomplicated; Z88.5 Allergy status to narcotic agent; Z88.6 Allergy status to analgesic agent; Z88.0 Allergy status to penicillin
CPT/HCPCS: 36415; 71046; 80053; 84484; 84703; 85025; 85379; 93005; 93010

== ENCOUNTER 2020-01-15 22:52 | Emergency (ER) | payer BC, OTHER ==
[2020-01-15 23:42] VITALS: BP 111/81
[2020-01-16] MEDS ORDERED: MORPHINE 4 MG/1 ML INJ IV ONE (00:59)
[2020-01-16] MEDS ORDERED: ONDANSETRON 4 MG/2 ML INJ IV ONE (00:59)
[2020-01-16 02:30] LABS: Basophils % (Auto) 0.6 % (0.0-1.8); Eosinophils # (Auto) 0.2 K/mm3 (0.0-0.4); Eosinophils % (Auto) 3.6 % (0.0-4.3); Hematocrit 37.3 % (30.3-42.9); Hemoglobin 12.6 gm/dl (10.1-14.3); Lymphocytes # (Auto) 2.8 K/mm3 (1.2-5.4); Lymphocytes % (Auto) 50.3 % (13.4-35.0); Mean Corpuscular HGB Conc 34 % (30-34); Mean Corpuscular Volume 100 fl (79-97); Monocytes # (Auto) 0.4 K/mm3 (0.0-0.8); Monocytes % (Auto) 6.8 % (0.0-7.3); Platelet Count 263 K/mm3 (140-440); Red Blood Count 3.75 M/mm3 (3.65-5.03); Red Cell Distribution Width 13.6 % (13.2-15.2)
[2020-01-16 02:31] LABS: Alanine Aminotransferase 13 units/L (7-56); Albumin 3.8 g/dL (3.9-5); Blood Urea Nitrogen 11 mg/dL (7-17); Calcium 8.6 mg/dL (8.4-10.2); Hemolysis Index 10
[2020-01-16 02:34] LABS: BUN/Creatinine Ratio 16
--- NOTE | 2020-01-16 03:36 | Cat Scan Report ---
CT chest w con INDICATION: Right-sided chest wall mass. TECHNIQUE: All CT scans at this location are performed using the following dose modulation technique: Automated exposure control. CONTRAST: Isovue-300, 100 cc IV injection. COMPARISON: None available. FINDINGS: Lungs contain no mass, infiltrate or pleural fluid. Negative for mediastinal mass or adenop athy. Imaging of the upper abdomen is unremarkable. No suspicious appearing chest wall mass. IMPRESSION: Negative CT chest. Signer Name: Josh Dempsey MD Signed: 01/16/2020 3:32 AM Workstation Name: [id number]
[2020-01-16] MEDS ORDERED: SULFAMETHOXAZOLE/TRIMETHOPRIM 800/160MG DS TAB PO ONE (04:00)
--- NOTE | 2020-01-16 05:24 | Emergency Department Report ---
ED General Adult HPI - General Chief complaint: Chest Pain Stated complaint: CHEST PAIN/PAIN/KNOT UNDER RT BREST Source: patient Mode of arrival: Ambulatory Limitations: No Limitations - History of Present Illness Initial comments: Patient is a 39-year-old -[place]ov[place] female with no past medical history presents to the ED with complaint of acute onset persistent severe painful swollen mass and under the right breast on the right chest wall for the last 2 weeks. Patient states that the pain is worse with palpation or laying on the right chest wall. Patient denies dizziness, fever, chills, nausea, vomiting, shortness of breath, cough, traumatic injury, abdominal pain, change in vision, diarrhea, syncope, palpitations, heavy lifting, numbness and tingling or weaknes s of right arm or neck pain. MD Complaint: right chest wall painful swollen mass -: Sudden, week(s) (2) Location: chest (right chest wall) Radiation: non-radiation Severity scale (0 -10): 8 Quality: aching, sharp Consistency: constant Improves with: none Worsens with: movement, other (palpation) Associated Symptoms: denies other symptoms, chest pain (due to a swollen painful mass). denies: confusion, cough, diaphoresis, headaches, loss of appetite, malaise, nausea/vomiting, shortness of breath, syncope Treatments Prior to Arrival: none - Related Data Previous Rx's Medication Instructions Recorded Last Taken Type Diphenoxylate HCl/Atropine 1 each PO QID PRN #20 tablet 09/21/16 Unknown Rx [Lomotil 2.5-0.025 mg Tablet] HYDROcodone/APAP 5-325 [[place] 1 - 2 each PO Q6HR PRN #14 tablet 09/21/16 Unknown Rx 5/325] Ondansetron [Zofran ODT TAB] 8 mg PO Q8HR #20 tab.rapdis 09/21/16 Unknown Rx Promethazine [Phenergan] 25 mg NE Q6HR PRN #5 supp.rect 09/21/16 Unknown Rx Sulfamethoxazole/Trimethoprim 1 each PO BID #14 tablet 09/21/16 Unknown Rx [Bactrim DS TAB] Ciprofloxacin HCl [Cipro] 500 mg PO Q12HR 10 Days #20 tablet 05/27/17 Unknown Rx HYDROcodone/ACETAMINOPHEN [[place] 1 each PO Q6HR PRN #12 tablet 05/27/17 Unknown Rx 5-325 Tablet] Ondansetron [Zofran Odt] 4 mg PO Q8HR PRN #15 tab.rapdis 05/27/17 Unknown Rx Acetaminophen [Acetaminophen TAB] 500 mg PO Q6HR PRN #25 tablet 10/17/17 Unknown Rx Acetaminophen [Tylenol] 1,000 mg PO Q6HR PRN #30 tablet 01/16/20 Unknown Rx Clindamycin [Clindamycin CAP] 300 mg PO Q8HR #60 capsule 01/16/20 Unknown Rx Ondansetron [Zofran Odt] 4 mg PO Q6HR PRN #15 tab.rapdis 01/16/20 Unknown Rx Sulfamethoxazole/Trimethoprim 1 each PO Q12H #20 tablet 01/16/20 Unknown Rx [Bactrim DS TAB] traMADoL [Ultram] 50 mg PO Q6HR PRN #12 tablet 01/16/20 Unknown Rx Allergies Allergy/AdvReac Type Severity Reaction Status Date / Time aspirin Allergy Swelling Verified 11/05/13 21:15 codeine Allergy Swelling Verified 11/05/13 21:15 Penicillins Allergy Swelling Verified 08/04/16 03:27 ED Review of Systems ROS: Stated complaint: CHEST PAIN/PAIN/KNOT UNDER RT BREST Other details as noted in HPI Constitutional: denies: chills, fever Eyes: denies: eye pain, eye discharge, vision change ENT: denies: ear pain, throat pain Respiratory: other (Right chest wall pain due to a swollen mass under her right breast). denies: cough, shortness of breath, wheezing Cardiovascular: chest pain (Right chest wall pain due to swollen painful mass under her right breast). denies: palpitations Endocrine: no symptoms reported Gastrointestinal: denies: abdominal pain, nausea, diarrhea Genitourinary: denies: urgency, dysuria, discharge Musculoskeletal: denies: back pain, joint swelling, arthralgia Skin: denies: rash, lesions Neurological: denies: headache, weakness, paresthesias Psychiatric: denies: anxiety, depression Hematological/Lymphatic: denies: easy bleeding, easy bruising ED Past Medical Hx - Past Medical History Previous Medical History?: No Additional medical history: ectopic preg. 2001, Vaginal delivery x 1, Pneumonia - Surgical History Additional Surgical History: ectopic, R ankle sx 2007 - Social History Smoking Status: Never Smoker Substance Use Type: None - Medications Home Medications: Home Medications Medication Instructions Recorded Confirmed Last Taken Type Diphenoxylate HCl/Atropine 1 each PO QID PRN #20 tablet 09/21/16 Unknown Rx [Lomotil 2.5-0.025 mg Tablet] HYDROcodone/APAP 5-325 [[place] 1 - 2 each PO Q6HR PRN #14 tablet 09/21/16 Unknown Rx 5/325] Ondansetron [Zofran ODT TAB] 8 mg PO Q8HR #20 tab.rapdis 09/21/16 Unknown Rx Promethazine [Phenergan] 25 mg NE Q6HR PRN #5 supp.rect 09/21/16 Unknown Rx Sulfamethoxazole/Trimethoprim 1 each PO BID #14 tablet 09/21/16 Unknown Rx [Bactrim DS TAB] Ciprofloxacin HCl [Cipro] 500 mg PO Q12HR 10 Days #20 tablet 05/27/17 Unknown Rx HYDROcodone/ACETAMINOPHEN [[place] 1 each PO Q6HR PRN #12 tablet 05/27/17 Unknown Rx 5-325 Tablet] Ondansetron [Zofran Odt] 4 mg PO Q8HR PRN #15 tab.rapdis 05/27/17 Unknown Rx Acetaminophen [Acetaminophen TAB] 500 mg PO Q6HR PRN #25 tablet 10/17/17 Unknown Rx Acetaminophen [Tylenol] 1,000 mg PO Q6HR PRN #30 tablet 01/16/20 Unknown Rx Clindamycin [Clindamycin CAP] 300 mg PO Q8HR #60 capsule 01/16/20 Unknown Rx Ondansetron [Zofran Odt] 4 mg PO Q6HR PRN #15 tab.rapdis 01/16/20 Unknown Rx Sulfamethoxazole/Trimethoprim 1 each PO Q12H #20 tablet 01/16/20 Unknown Rx [Bactrim DS TAB] traMADoL [Ultram] 50 mg PO Q6HR PRN #12 tablet 01/16/20 Unknown Rx ED Physical Exam - General Limitations: No Limitations General appearance: alert, in no apparent distress - Head Head exam: Present: atraumatic, normocephalic, normal inspection - Eye Eye exam: Present: normal appearance, PERRL, EOMI Pupils: Present: normal accommodation - ENT ENT exam: Present: normal exam, normal orophraynx, mucous membranes moist, TM's normal bilaterally, normal external ear exam - Neck Neck exam: Present: normal inspection, full ROM - Respiratory Respiratory exam: Present: normal lung sounds bilaterally, chest wall tenderness (Palpable right chest wall tenderness due to a palpable swelling severely tender nonfluctuant mass). Absent: respiratory distress, wheezes, rales, rhonchi, accessory muscle use, decreased breath sounds, prolonged expiratory - Cardiovascular Cardiovascular Exam: Present: normal rhythm, tachycardia, normal heart sounds. Absent: systolic murmur, diastolic murmur, rubs, gallop - GI/Abdominal GI/Abdominal exam: Present: soft, normal bowel sounds. Absent: tenderness, guarding, rebound, hyperactive bowel sounds, hypoactive bowel sounds, organomegaly - Extremities Exam Extremities exam: Present: normal inspection, full ROM, normal capillary refill - Back Exam Back exam: Present: normal inspection, full ROM. Absent: tenderness, CVA tenderness (R), muscle spasm, paraspinal tenderness, vertebral tenderness - Neurological Exam Neurological exam: Present: alert, oriented X3, CN II-XII intact, normal gait, reflexes normal - Psychiatric Psychiatric exam: Present: normal affect, normal mood - Skin Skin exam: Present: warm, dry, intact, normal color. Absent: rash ED Course Vital Signs 01/15/20 01/16/20 23:33 05:35 Temperature 98 F Pulse Rate 104 H 79 Respiratory 18 16 Rate Blood Pressure 111/81 O2 Sat by Pulse 99 100 Oximetry ED Medical Decision Making - Lab Data Result diagrams: 01/16/20 01:03 01/16/20 01:03 - Radiology Data Radiology results: report reviewed, image reviewed Findings [facility] [address] [place] [address] Cat Scan Report Signed Patient: NEERU SUBRAMANIAN MR#: [id number] : 1980 Acct:[id number] Age/Sex: 39 / F ADM Date: 01/15/20 Loc: ED Attending Dr: Ordering Physician: CHRISTEL WEISS Date of Service: 01/16/20 Procedure(s): CT chest w con Accession Number(s): [id number] cc: CHRISTEL WEISS CT chest w con INDICATION: Right-sided chest wall mass. TECHNIQUE: All CT scans at this location are performed using the following dose modulation technique: Automated exposure control. CONTRAST: Isovue-300, 100 cc IV injection. COMPARISON: None available. FINDINGS: Lungs contain no mass, infiltrate or pleural fluid. Negative for mediastinal mass or adenopathy. Imaging of the upper abdomen is unremarkable. No suspicious appearing chest wall mass. IMPRESSION: Negative CT chest. Signer Name: Josh Dempsey MD Signed: 01/16/2020 3:32 AM Workstation Name: [id number] Transcribed By: ES Dictated By: Josh Dempsey MD Electronically Authenticated By: Josh Dempsey MD Signed Date/Time: 01/16/20331 DD/ TD/TT: - Medical Decision Making This is a 39-year-old -[place] female with no past medical history presents to the ED with complaint of acute onset persistent severe painful swollen mass and under the right breast on the right chest wall for the last 2 weeks. Patient states that the pain is worse with palpation or laying on the right chest wall. In the ED, patient is alert and oriented x3 and is not in distress, but appears to be in significant pain and is tachycardic in triage but afebrile. Patient was treated for pain in the ED and lab test results were reviewed and are all nonactionable. Chest CT scan with contrast showed no acute process or abnormalities or chest wall mass. On reevaluation, patient's pain is well controlled medication. Patient was discharged home on medications and advised to follow-up with [employer] physician for possible mammogram of her breast to rule out any neoplasm. Patient was advised to return to the ED immediately if symptoms get worse. - Differential Diagnosis abscess of right breast; mastitis; lymphadenopathy; breast neoplasm Critical care attestation.: If time is entered above; I have spent that time in minutes in the direct care of this critically ill patient, excluding procedure time. ED Disposition Clinical Impression: Focal lymphadenopathy, Abscess of chest wall Disposition: DC-01 TO HOME OR SELFCARE Is pt being admited?: No Does the pt Need Aspirin: No Condition: Stable Instructions: Lymphadenopathy (ED), Abscess (ED) Additional Instructions: Lab test results and imaging reports are unremarkable. Therefore take medications with food, drink plenty of fluids and follow-up with your [employer] physician in 5 to 7 days for reevaluation. Consider having a mammogram to rule out any life-threatening neoplasms of the right breast. Return to the ED immediately if symptoms get worse. Prescriptions: Acetaminophen [Tylenol] 1,000 mg PO Q6HR PRN #30 tablet PRN Reason: Pain , Severe (7-10) Sulfamethoxazole/Trimethoprim [Bactrim DS TAB] 1 each PO Q12H #20 tablet Clindamycin [Clindamycin CAP] 300 mg PO Q8HR #60 capsule traMADoL [Ultram] 50 mg PO Q6HR PRN #12 tablet PRN Reason: Pain Ondansetron [Zofran Odt] 4 mg PO Q6HR PRN #15 tab.rapdis PRN Reason: Nausea Referrals: [facility] [Provider Group] - 3-5 Days Forms: Work/School Release Form(ED) Time of Disposition: 05:21 Print Language: KAZAKH
== END 2020-01-16 05:35 | disposition home or self-care (01) ==
LOC: ED 22:52
DX: R59.1 Generalized enlarged lymph nodes (principal); J86.9 Pyothorax without fistula; Z79.899 Other long term (current) drug therapy; Z88.0 Allergy status to penicillin; Z88.6 Allergy status to analgesic agent
CPT/HCPCS: 36415; 71260; 80053; 84484; 85025; 93005; 96365; 96375; 99284; J2270; J2405; Q9967

== ENCOUNTER 2021-08-26 23:19 | Emergency (ER) | payer SELFPAY ==
--- NOTE | 2021-08-27 02:27 | Emergency Department Report ---
ED General Adult HPI - General Chief complaint: Neck Pain/Injury Stated complaint: KNOT ON NECK/ASTON Time Seen by Provider: 08/27/21 02:08 Source: patient Mode of arrival: Ambulatory Limitations: No Limitations - History of Present Illness Initial comments: Patient is 41 years old female with no significant past medical history. Patient presented to the ER complaining of right neck pain and lumps has been going on for 3 days. Patient denied any fever or chills. She denied nausea vomiting. No shortness of breath or difficulty in breathing. I reviewed patient records patient presented here 2 years ago with complaint of lumps in her chest and had a CT chest that came back negative with no evidence of mass. - Related Data Previous Rx's Medication Instructions Recorded Last Taken Type Diphenoxylate HCl/Atropine 1 each PO QID PRN #20 tablet 09/21/16 Unknown Rx [Lomotil 2.5-0.025 mg Tablet] HYDROcodone/APAP 5-325 [[place] 1 - 2 each PO Q6HR PRN #14 tablet 09/21/16 Unknown Rx 5/325] Ondansetron [Zofran ODT TAB] 8 mg PO Q8HR #20 tab.rapdis 09/21/16 Unknown Rx Promethazine [Phenergan] 25 mg [place] Q6HR PRN #5 supp.rect 09/21/16 Unknown Rx Sulfamethoxazole/Trimethoprim 1 each PO BID #14 tablet 09/21/16 Unknown Rx [Bactrim DS TAB] Ciprofloxacin HCl [Cipro] 500 mg PO Q12HR 10 Days #20 tablet 05/27/17 Unknown Rx HYDROcodone/ACETAMINOPHEN [[place] 1 each PO Q6HR PRN #12 tablet 05/27/17 Unknown Rx 5-325 Tablet] Ondansetron [Zofran Odt] 4 mg PO Q8HR PRN #15 tab.rapdis 05/27/17 Unknown Rx Acetaminophen [Acetaminophen TAB] 500 mg PO Q6HR PRN #25 tablet 10/17/17 Unknown Rx Acetaminophen [Tylenol] 1,000 mg PO Q6HR PRN #30 tablet 01/16/20 Unknown Rx Clindamycin [Clindamycin CAP] 300 mg PO Q8HR #60 capsule 01/16/20 Unknown Rx Ondansetron [Zofran Odt] 4 mg PO Q6HR PRN #15 tab.rapdis 01/16/20 Unknown Rx Sulfamethoxazole/Trimethoprim 1 each PO Q12H #20 tablet 01/16/20 Unknown Rx [Bactrim DS TAB] traMADoL [Ultram] 50 mg PO Q6HR PRN #12 tablet 01/16/20 Unknown Rx Allergies Allergy/AdvReac Type Severity Reaction Status Date / Time aspirin Allergy Swelling Verified 11/05/13 21:15 codeine Allergy Swelling Verified 11/05/13 21:15 Penicillins Allergy Swelling Verified 08/04/16 03:27 ED Review of Systems ROS: Stated complaint: KNOT ON NECK/ASTON Other details as noted in HPI Comment: All other systems reviewed and negative Constitutional: denies: chills, fever Respiratory: denies: cough, shortness of breath, SOB with exertion, SOB at rest Cardiovascular: denies: chest pain, palpitations Gastrointestinal: denies: abdominal pain, nausea, vomiting Musculoskeletal: denies: back pain Neurological: denies: headache, weakness ED Past Medical Hx - Past Medical History Additional medical history: ectopic preg. 2000, Vaginal delivery x 1, Pneumonia - Surgical History Additional Surgical History: ectopic, R ankle sx 2006 - Social History Smoking Status: Never Smoker Substance Use Type: None - Medications Home Medications: Home Medications Medication Instructions Recorded Confirmed Last Taken Type Diphenoxylate HCl/Atropine 1 each PO QID PRN #20 tablet 09/21/16 Unknown Rx [Lomotil 2.5-0.025 mg Tablet] HYDROcodone/APAP 5-325 [[place] 1 - 2 each PO Q6HR PRN #14 tablet 09/21/16 Unknown Rx 5/325] Ondansetron [Zofran ODT TAB] 8 mg PO Q8HR #20 tab.rapdis 09/21/16 Unknown Rx Promethazine [Phenergan] 25 mg [place] Q6HR PRN #5 supp.rect 09/21/16 Unknown Rx Sulfamethoxazole/Trimethoprim 1 each PO BID #14 tablet 09/21/16 Unknown Rx [Bactrim DS TAB] Ciprofloxacin HCl [Cipro] 500 mg PO Q12HR 10 Days #20 tablet 05/27/17 Unknown Rx HYDROcodone/ACETAMINOPHEN [[place] 1 each PO Q6HR PRN #12 tablet 05/27/17 Unknown Rx 5-325 Tablet] Ondansetron [Zofran Odt] 4 mg PO Q8HR PRN #15 tab.rapdis 05/27/17 Unknown Rx Acetaminophen [Acetaminophen TAB] 500 mg PO Q6HR PRN #25 tablet 10/17/17 Unknown Rx Acetaminophen [Tylenol] 1,000 mg PO Q6HR PRN #30 tablet 01/16/20 Unknown Rx Clindamycin [Clindamycin CAP] 300 mg PO Q8HR #60 capsule 01/16/20 Unknown Rx Ondansetron [Zofran Odt] 4 mg PO Q6HR PRN #15 tab.rapdis 01/16/20 Unknown Rx Sulfamethoxazole/Trimethoprim 1 each PO Q12H #20 tablet 01/16/20 Unknown Rx [Bactrim DS TAB] traMADoL [Ultram] 50 mg PO Q6HR PRN #12 tablet 01/16/20 Unknown Rx ED Physical Exam - General Limitations: No Limitations General appearance: alert, in no apparent distress - Head Head exam: Present: atraumatic, normocephalic, normal inspection - ENT ENT exam: Present: normal exam, normal orophraynx, mucous membranes moist - Neck Neck exam: Present: lymphadenopathy - Respiratory Respiratory exam: Present: normal lung sounds bilaterally - Cardiovascular Cardiovascular Exam: Present: regular rate, normal rhythm, normal heart sounds - GI/Abdominal GI/Abdominal exam: Present: soft, normal bowel sounds. Absent: distended, tenderness, guarding, rebound, rigid, organomegaly, mass, bruit, pulsatile mass, hernia - Extremities Exam Extremities exam: Present: normal inspection, full ROM, normal capillary refill. Absent: tenderness - Back Exam Back exam: Present: normal inspection, full ROM. Absent: CVA tenderness (R), CVA tenderness (L) - Neurological Exam Neurological exam: Present: alert, oriented X3, CN II-XII intact, normal gait, reflexes normal. Absent: motor sensory deficit - Psychiatric Psychiatric exam: Present: normal mood - Skin Skin exam: Present: warm, intact, normal color ED Course Vital Signs 08/27/21 08/27/21 08/27/21 00:29 03:02 03:03 Temperature 98.2 F 98.0 F Pulse Rate 108 H 99 H Respiratory 16 15 Rate Blood Pressure 121/94 111/77 Blood Pressure 111/77 [Left] O2 Sat by Pulse 99 99 100 Oximetry 08/27/21 03:04 Temperature Pulse Rate Respiratory 15 Rate Blood Pressure Blood Pressure [Left] O2 Sat by Pulse 100 Oximetry ED Medical Decision Making - Lab Data Result diagrams: 08/27/21 02:49 08/27/21 02:49 - Medical Decision Making Patient is 41 years old female with no significant past medical history. Patient presented to the ER complaining of right neck pain and lumps has been going on for 3 days. Patient denied any fever or chills. She denied nausea vomiting. No shortness of breath or difficulty in breathing. I reviewed patient records patient presented here 2 years ago with complaint of lumps in her chest and had a CT chest that came back negative with no evidence of mass. Labs reviewed and is unremarkable. Patient exam showed very small and minor right cervical lymphadenopathy could be infectious. I started the patient on clindamycin and advised patient to follow-up with her primary care physician in the next 2 to 3 days and to return to the ER if she develop any new symptoms. Critical care attestation.: If time is entered above; I have spent that time in minutes in the direct care of this critically ill patient, excluding procedure time. ED Disposition Clinical Impression: Cervical lymphadenopathy Disposition: 01 HOME / SELF CARE / HOMELESS Is pt being admited?: No Condition: Stable Instructions: Lymphadenopathy Referrals: PRIMARY CARE, [Primary Care Provider] - 3-5 Days
[2021-08-27 03:04] VITALS: BP 111/77
[2021-08-27 03:11] LABS: Basophils % (Auto) 1.1 % (0.0-1.8); Eosinophils # (Auto) 0.1 K/mm3 (0.0-0.4); Eosinophils % (Auto) 1.2 % (0.0-4.3); Hemoglobin 13.4 gm/dl (10.1-14.3); Lymphocytes # (Auto) 1.7 K/mm3 (1.2-5.4); Lymphocytes % (Auto) 40.6 % (13.4-35.0); Mean Corpuscular HGB Conc 34 % (30-34); Mean Corpuscular Volume 99 fl (79-97); Monocytes # (Auto) 0.4 K/mm3 (0.0-0.8); Monocytes % (Auto) 10.1 % (0.0-7.3); Platelet Count 264 K/mm3 (140-440); Red Blood Count 4.04 M/mm3 (3.65-5.03); Red Cell Distribution Width 14.6 % (13.2-15.2)
[2021-08-27 03:24] LABS: Alanine Aminotransferase 19 units/L (7-56); Albumin 4.3 g/dL (3.9-5); Blood Urea Nitrogen 7 mg/dL (7-17); Calcium 8.5 mg/dL (8.4-10.2); Hemolysis Index 15
[2021-08-27 03:28] LABS: BUN/Creatinine Ratio 10
[2021-08-27 10:19] LABS: Bilirubin,Urine NEG (Negative); Blood,Urine NEG (Negative); Color,Urine Straw (Yellow); Mucus,Urine FEW /HPF; Protein,Urine <15 mg/dL mg/dL (Negative); Urobilinogen,Urine < 2.0 mg/dL (<2.0)
[2021-08-27 10:33] LABS: Amphetamine Screen,Urine Negative; Benzodiazepines Screen,Urine Negative; Cannabinoid Screen,Urine Negative; Cocaine Screen,Urine Negative; Methadone Screen,Urine Negative; Opiate Screen,Urine Negative
== END 2021-08-27 05:41 | disposition home or self-care (01) ==
LOC: ED 23:19
DX: R59.1 Generalized enlarged lymph nodes (principal); M54.2 Cervicalgia; Z88.0 Allergy status to penicillin; Z88.5 Allergy status to narcotic agent; Z88.6 Allergy status to analgesic agent; Z79.899 Other long term (current) drug therapy
CPT/HCPCS: 36415; 80053; 80307; 81001; 85025; 99283

== ENCOUNTER 2021-08-28 00:21 | Emergency (ER) | payer SELFPAY ==
[2021-08-28 03:37] VITALS: BP 120/84
[2021-08-28] MEDS ORDERED: ONDANSETRON 4 MG/2 ML INJ IV ONE (09:46)
[2021-08-28] MEDS ORDERED: SODIUM CHLORIDE 0.9% 1000 ML 1,000 ML IV ONE (09:46)
[2021-08-28] MEDS ORDERED: MORPHINE 4 MG/1 ML INJ IV ONE (09:46)
--- NOTE | 2021-08-28 09:47 | Emergency Department Report ---
ED General Adult HPI - General Chief complaint: Nausea/Vomiting/Diarrhea Stated complaint: NAUSEA/VOMITING/LUMP ON NECK/RT SIDE PAIN PUI?: No Time Seen by Provider: 08/28/21 09:31 Source: patient, RN notes reviewed, old records reviewed Mode of arrival: Ambulatory Limitations: No Limitations - History of Present Illness Initial comments: The patient is a 41-year-old female. She was seen in this department earlier on yesterday for right-sided neck pain and neck swelling. The patient had laboratory studies which were essentially unremarkable. The patient presents to the ER today with a complaint of persistent and recurren t right-sided neck pain, fever at home to 104 degrees, nausea and vomiting, coughing, posttussive hematemesis, lower abdominal pain, without dysuria. she also endorses right-sided thoracic pain, and right-sided abdominal pain. She denies extremity weakness. Patient reports 1 sexual contact, without condoms, no history of gonorrhea, chlamydia, or trichomoniasis that she is aware of. Her right-sided neck pain is sharp and throbbing. She denies dental pain. She has right-sided ear pain and headache. She denies loss of auditory acuity. -: days(s) Location: neck, chest, abdomen Radiation: abdomen Severity scale (0 -10): 10 Quality: aching Consistency: constant Improves with: rest Worsens with: movement - Related Data Previous Rx's Medication Instructions Recorded Last Taken Type Acetaminophen [Non-Aspirin Extra 500 mg PO Q6HR PRN #30 tablet 08/28/21 Unknown Rx Strength] DOXYCYCLINE Hyclate [Vibramycin] 100 mg PO Q12HR #28 capsule 08/28/21 Unknown Rx Morphine Sulfate [Morphine Sulfate 7.5 mg PO Q6HR PRN #10 tablet 08/28/21 Un known Rx IR] Ondansetron [Zofran Odt] 4 mg PO Q8HR PRN #20 tab.rapdis 08/28/21 Unknown Rx metroNIDAZOLE [Flagyl] 500 mg PO Q12HR #13 tab 08/28/21 Unknown Rx Allergies Allergy/AdvReac Type Severity Reaction Status Date / Time aspirin Allergy Swelling Verified 11/05/13 21:15 codeine Allergy Swelling Verified 11/05/13 21:15 Penicillins Allergy Swelling Verified 08/04/16 03:27 ED Review of Systems ROS: Stated complaint: NAUSEA/VOMITING/LUMP ON NECK/RT SIDE PAIN Other details as noted in HPI Constitutional: fever. denies: weakness Eyes: denies: vision change ENT: denies: epistaxis Respiratory: denies: shortness of breath, wheezing Cardiovascular: other (Right-sided thoracic pain) Gastrointestinal: abdominal pain, nausea, vomiting. denies: hematemesis, melena, hematochezia Genitourinary: denies: dysuria Musculoskeletal: back pain, myalgia Neurological: headache Psychiatric: anxiety ED Past Medical Hx - Past Medical History Previous Medical History?: Yes Additional medical history: ectopic preg. 2001, Vaginal delivery x 1, Pneumonia - Surgical History Past Surgical History?: Yes Additional Surgical History: ectopic, R ankle sx 2006 - Social History Smoking Status: Never Smoker Substance Use Type: None - Medications Home Medications: Home Medications Medication Instructions Recorded Confirmed Last Taken Type Acetaminophen [Non-Aspirin Extra 500 mg PO Q6HR PRN #30 tablet 08/28/21 Unknown Rx Strength] DOXYCYCLINE Hyclate [Vibramycin] 100 mg PO Q12HR #28 capsule 08/28/21 Unknown Rx Morphine Sulfate [Morphine Sulfate 7.5 mg PO Q6HR PRN #10 tablet 08/28/21 U nknown Rx IR] Ondansetron [Zofran Odt] 4 mg PO Q8HR PRN #20 tab.rapdis 08/28/21 Unknown Rx metroNIDAZOLE [Flagyl] 500 mg PO Q12HR #13 tab 08/28/21 Unknown Rx ED Physical Exam - General Limitations: No Limitations General appearance: alert, anxious - Head Head exam: Present: atraumatic, normocephalic - Eye Eye exam: Present: normal appearance, PERRL, EOMI - ENT ENT exam: Present: normal exam, normal orophraynx, mucous membranes moist, normal external ear exam, other (Poor dentition is noted. There is no dental tenderness to percussion). Absent: TM's normal bilaterally (There is right- sided tympanic membrane erythema noted) - Neck Neck exam: Present: normal inspection, tenderness (There is right-sided neck tenderness.), full ROM, lymphadenopathy, other (Trachea is midline. There is mild pain with tracheal manipulation) - Respiratory Respiratory exam: Present: normal lung sounds bilaterally. Absent: respiratory distress, wheezes, rales, rhonchi, stridor, decreased breath sounds - Cardiovascular Cardiovascular Exam: Present: regular rate, normal rhythm, normal heart sounds. Absent: bradycardia, tachycardia, irregular rhythm, systolic murmur, diastolic murmur, rubs, gallop - GI/Abdominal GI/Abdominal exam: Present: soft, tenderness, guarding (There is voluntary guarding), other (There is diffuse abdominal tenderness.). Absent: distended, rebound, rigid, pulsatile mass - External exam: Present: normal external exam Speculum exam: Present: cervical discharge, other (Chaperoned by airport electrician Reyes Zapien). Absent: vaginal bleeding, foreign body Bi-manual exam: Present: cervical motion tendernes, adnexal tenderness - Extremities Exam Extremities exam: Present: normal inspection, full ROM, other (2+ pulses noted in the bilateral upper and lower extremities. There is no palpable cord. negative Homans sign. Muscular compartments are soft. The pelvis is stable.). Absent: pedal edema, calf tenderness - Back Exam Back exam: Present: normal inspection, CVA tenderness (R), CVA tenderness (L). Absent: tenderness, paraspinal tenderness, vertebral tenderness - Neurological Exam Neurological exam: Present: alert, oriented X3, reflexes normal, other (No facial droop. Tongue midline. Extraocular movements intact bilaterally. Facial sensation intact to light touch in V1, V2, V3 distribution bilaterally. 5 and a 5 strength in 4 extremities. Sensation intact to light touch in 4 extr emities.). Absent: motor sensory deficit - Psychiatric Psychiatric exam: Present: normal affect, normal mood - Skin Skin exam: Present: warm, dry, intact, normal color. Absent: rash ED Course Vital Signs 08/28/21 03:31 Temperature 99.2 F Pulse Rate 98 H Respiratory 14 Rate Blood Pressure 120/84 [Right] O2 Sat by Pulse 100 Oximetry - Reevaluation(s) Reevaluation #1: 08/28/21 13:37 Differential diagnosis, including but not limited to: Strep, gonorrhea, chlamydia, intra-abdominal infection, deep space neck infection, pneumonia Assessment and plan: 41-year-old female with a complaint of fever, right-sided adenopathy, nausea and vomiting, hematemesis, lower abdominal pain. Laboratory studies are reviewed and appreciated. They are unremarkable. Patient has a GCS of 15, and is clinically sober. She is not currently tachycardic, tachypneic or hypoxic, she denies DVT/PE risk factors, and she is low risk by Wells criteria for pulmonary embolism. She is also PERC negative. Patient reports receiving multiple doses of penicillin medication prior to the age of 16, she does report that at the age of 16 she received penicillin or some sort of penicillin derivative, and developed a rash on her right arm, without airway symptoms. She is not sure if she has had penicillin since then but does not think so. Highly suspicious for gonorrhea/chlamydia/trichomoniasis. Wet prep shows trichomoniasis. Third generation cephalosporin such as ceftriaxone is structurally dissimilar to penicillin, and is very statistically unlikely to cause an anaphylactic or anaphylactoid reaction. Patient will be covered empirically with ceftriaxone, doxycycline, as well as metronidazole. Patient advised of presence of trichomoniasis, and likelihood for STI. X-ray of the chest pending, CT scan of the neck pending, CT scan of the abdomen pelvis is pending. I suspect the patient's neck pain is likely secondary to reactive adenopathy. Rapid strep is negative. Reassess after CT scans have resulted 08/28/21 15:08 X-ray of the chest is negative for acute findings. No active vomiting. Chest x-ray negative. CT scan abdomen pelvis suggestive of enteritis, but otherwise, no significant findings. Patient counseled on significance of findings. She is agreeable to discharge. She feels improved. Return precautions are reviewed. All questions answered ED Medical Decision Making - Lab Data Result diagrams: 08/28/21 12:12 08/28/21 12:12 Vital Signs 08/28/21 03:31 Temperature 99.2 F Pulse Rate 98 H Respiratory 14 Rate Blood Pressure 120/84 [Right] O2 Sat by Pulse 100 Oximetry Lab Results 08/28/21 08/28/21 08/28/21 Range/Units 12:12 12:12 12:12 WBC 2.9 L (4.5-11.0) K/mm3 RBC 4.15 (3.65-5.03) M/mm3 Hgb 13.8 (10.1-14.3) gm/dl Hct 40.9 (30.3-42.9) % MCV 99 H (79-97) fl MCH 33 H (28-32) pg MCHC 34 (30-34) % RDW 14.5 (13.2-15.2) % Plt Count 227 (140-440) K/mm3 Lymph % (Auto) 43.3 H (13.4-35.0) % [place] % (Auto) 14.9 H (0.0-7.3) % Eos % (Auto) 0.5 (0.0-4.3) % Baso % (Auto) 1.0 (0.0-1.8) % Lymph # (Auto) 1.2 (1.2-5.4) K/mm3 [place] # (Auto) 0.4 (0.0-0.8) K/mm3 Eos # (Auto) 0.0 (0.0-0.4) K/mm3 Baso # (Auto) 0.0 (0.0-0.1) K/mm3 Seg Neutrophils % 40.3 (40.0-70.0) % Seg Neutrophils # 1.2 L (1.8-7.7) K/mm3 Sodium 135 L (137-145) mmol/L Potassium 3.6 (3.6-5.0) mmol/L Chloride 100.3 (98-107) mmol/L Carbon Dioxide 22 (22-30) mmol/L Anion Gap 16 mmol/L BUN 8 (7-17) mg/dL Creatinine 0.7 (0.6-1.2) mg/dL Estimated GFR > 60 ml/min BUN/Creatinine Ratio 11 % Glucose 85 (65-100) mg/dL Calcium 8.7 (8.4-10.2) mg/dL Total Bilirubin 0.30 (0.1-1.2) mg/dL AST 23 (5-40) units/L ALT 17 (7-56) units/L Alkaline Phosphatase 70 (35-129) units/L Total Creatine Kinase 68 (30-135) units/L Total Protein 7.2 (6.3-8.2) g/dL Albumin 4.0 (3.9-5) g/dL Albumin/Globulin Ratio 1.3 % HCG, Quant < 2 (0-4) mIU/mL Group A Strep Rapid (Negative) 08/28/21 Range/Units Unknown WBC (4.5-11.0) K/mm3 RBC (3.65-5.03) M/mm3 Hgb (10.1-14.3) gm/dl Hct (30.3-42.9) % MCV (79-97) fl MCH (28-32) pg MCHC (30-34) % RDW (13.2-15.2) % Plt Count (140-440) K/mm3 Lymph % (Auto) (13.4-35.0) % [place] % (Auto) (0.0-7.3) % Eos % (Auto) (0.0-4.3) % Baso % (Auto) (0.0-1.8) % Lymph # (Auto) (1.2-5.4) K/mm3 [place] # (Auto) (0.0-0.8) K/mm3 Eos # (Auto) (0.0-0.4) K/mm3 Baso # (Auto) (0.0-0.1) K/mm3 Seg Neutrophils % (40.0-70.0) % Seg Neutrophils # (1.8-7.7) K/mm3 Sodium (137-145) mmol/L Potassium (3.6-5.0) mmol/L Chloride (98-107) mmol/L Carbon Dioxide (22-30) mmol/L Anion Gap mmol/L BUN (7-17) mg/dL Creatinine (0.6-1.2) mg/dL Estimated GFR ml/min BUN/Creatinine Ratio % Glucose (65-100) mg/dL Calcium (8.4-10.2) mg/dL Total Bilirubin (0.1-1.2) mg/dL AST (5-40) units/L ALT (7-56) units/L Alkaline Phosphatase (35-129) units/L Total Creatine Kinase (30-135) units/L Total Protein (6.3-8.2) g/dL Albumin (3.9-5) g/dL Albumin/Globulin Ratio % HCG, Quant (0-4) mIU/mL Group A Strep Rapid Negative (Negative) - EKG Data -: EKG Interpreted by In EKG shows normal: sinus rhythm Rate: normal - EKG Data 08/28/21 13:32 The EKG is interpreted at 11: 10 Sinus rhythm, 71 bpm. Normal axis, normal P wave axis, high left ventricular voltage, QTC 4 4 1 ms. Abnormal EKG. Not a STEMI - Radiology Data Radiology results: pending, report reviewed, image reviewed CT abdomen pelvis w con INDICATION / CLINICAL INFORMATION: Acute abdominal pain, nausea and vomiting. TECHNIQUE: Axial CT imaging of abdomen and pelvis was obtained with IV contrast. Coronal and sagittal reformatted imaging obtained and reviewed. All CT scans at this location are performed using CT dose reduction for ALARA by means of automated exposure control. COMPARISON: Prior CT abdomen/pelvis 05/27/2017 FINDINGS: CT abdomen with contrast demonstrates normal appearance of the liver, spleen, pancreas, kidneys, and adrenal glands. Gallbladder is unremarkable. No biliary dilatation. Abdominal aorta is unremarkable. CT pelvis with contrast demonstrates normal appearance of the appendix in the right lower quadrant. No pelvic mass, free fluid, or focal inflammatory changes noted. In the pelvis there are some nondilated fluid-filled loops of small bowel which are nonspecific, but could potentially indicate the presence of mild enteritis. This would, of coarse, need to be correlated clinic ally. The remainder of the GI tract is unremarkable. Visualized lung bases are clear. No acute osseous abnormality noted. IMPRESSION: 1. Questionable mild enteritis. This would need to be correlated with clinical symptoms and presentation. 2. No other significant finding within the abdomen or pelvis. Signer Name: Kusum Oropeza MD Signed: 08/28/2021 1:10 PM Workstation Name: [email or web address] CHEST 1 VIEW INDICATION / CLINICAL INFORMATION: right sided thoracic pain hematemesis. COMPARISON: 07/06/2015 FINDINGS: SUPPORT DEVICES: None. HEART / MEDIASTINUM: No significant abnormality. LUNGS / PLEURA: No significant pulmonary or pleural abnormality. No pneumothorax. ADDITIONAL FINDINGS: No significant additional findings. IMPRESSION: 1. No acute findings. No interval change. Signer Name: Kusum Oropeza MD Signed: 08/28/2021 12:54 PM Workstation Name: [id number] CT NECK 08/28/2021 HISTORY: Right-sided neck pain, fever, adenopathy. FINDINGS: Contrast enhanced CT images of the soft tissues of the neck were obtained. Images are evaluated in the axial, coronal, and sagittal plane. There is no evidence of abnormal neck mass, fluid collection, or inflammatory change. Moderate bilateral symmetric tonsillar lymphoid hyperplasia is present. Numerous bilateral cervical lymph nodes are present, with a benign appearance. These have maximum size of approximately 1-1 0.5 cm in the jugulodigastric region. There is a normal appearance to the submandibular and parotid glands. Vascular structures are unremarkable. There is no evidence of acute osseous abnormality. Reversal of cervical lordosis is centered at the C4-5 level. Degenerative disc space narrowing is present at C6-7. IMPRESSION: Tonsillar lymphoid hyperplasia. No evidence of abscess. All CT scans at this location are performed using dose reduction to ALARA by means of automated exposure control. Signer Name: Roman Bermudez MD Signed: 08/28/2021 1:57 PM Critical care attestation.: If time is entered above; I have spent that time in minutes in the direct care of this critically ill patient, excluding procedure time. ED Disposition Clinical Impression: Neck pain on right side, Trichomoniasis, History of hemoptysis, Acute bilateral lower abdominal pain, Cervical lymphadenopathy Disposition: 01 HOME / SELF CARE / HOMELESS Is pt being admited?: No Does the pt Need Aspirin: No Condition: Good Additional Instructions: As we discussed, patient was found to have trichomoniasis on wet prep, and her presentation today suspicious for pelvic inflammatory disease. Cultures were sent today, and results will be available next 3-5 days. Please have your primary care doctor call the medical records department to obtain your culture results. Take the antibiotic therapy as directed. Take the nausea medication and pain medication as directed. I recommend outpatient testing for sexually transmitted diseases, including hepatitis, syphilis and HIV. I also recommend that you abstain from sexual activity until you have completed her antibiotic therapy, a physician states that it is safe for you to resume sexual activity, and any partners that you have been sexually active with have been tested/treated/evaluated for sexual transmitted diseases. Please follow-up with physician within 3-5 days. I recommend that you return to the ER right away with worsening pain, migration of pain, intractable nausea/vomiting, inability tolerate liquid feeds. Please return to the emergency room right away with new pain, worsened pain, migration of pain, projectile vomiting, change in mental status, confusion, i nability tolerate liquid feeds, new, worsened or different symptoms not present on the initial emergency room evaluation Do not consume alcohol while taking the metronidazole medication. Prescriptions: metroNIDAZOLE [Flagyl] 500 mg PO Q12HR #13 tab Morphine Sulfate [Morphine Sulfate IR] 7.5 mg PO Q6HR PRN #10 tablet PRN Reason: Pain , Severe (7-10) Acetaminophen [Non-Aspirin Extra Strength] 500 mg PO Q6HR PRN #30 tablet PRN Reason: Pain , Severe (7-10) DOXYCYCLINE Hyclate [Vibramycin] 100 mg PO Q12HR #28 capsule Ondansetron [Zofran Odt] 4 mg PO Q8HR PRN #20 tab.rapdis PRN Reason: Nausea Referrals: [facility] [Provider Group] - 3-5 Days [facility] [Provider Group] - 3-5 Days [facility] [Outside] - 3-5 Days Forms: Work/School Release Form(ED)
[2021-08-28] MEDS ORDERED: PANTOPRAZOLE 40 MG INJ IV ONE (10:28)
[2021-08-28] MEDS ORDERED: metroNIDAZOLE 500 MG TAB PO ONE (10:48)
[2021-08-28] MEDS ORDERED: DOXYCYCLINE 100 MG CAP PO ONE (10:48)
[2021-08-28 12:28] LABS: Eosinophils % (Auto) 0.5 % (0.0-4.3); Hematocrit 40.9 % (30.3-42.9); Hemoglobin 13.8 gm/dl (10.1-14.3); Lymphocytes # (Auto) 1.2 K/mm3 (1.2-5.4); Lymphocytes % (Auto) 43.3 % (13.4-35.0); Mean Corpuscular HGB Conc 34 % (30-34); Mean Corpuscular Volume 99 fl (79-97); Monocytes # (Auto) 0.4 K/mm3 (0.0-0.8); Monocytes % (Auto) 14.9 % (0.0-7.3); Platelet Count 227 K/mm3 (140-440); Red Blood Count 4.15 M/mm3 (3.65-5.03); Red Cell Distribution Width 14.5 % (13.2-15.2)
[2021-08-28 12:49] LABS: Alanine Aminotransferase 17 units/L (7-56); Blood Urea Nitrogen 8 mg/dL (7-17); Calcium 8.7 mg/dL (8.4-10.2); Hemolysis Index 5
[2021-08-28 12:54] LABS: BUN/Creatinine Ratio 11
--- NOTE | 2021-08-28 13:59 | XRay Report ---
CHEST 1 VIEW INDICATION / CLINICAL INFORMATION: right sided thoracic pain hematemesis. COMPARISON: 07/06/2015 FINDINGS: SUPPORT DEVICES: None. HEART / MEDIASTINUM: No significant abnormality. LUNGS / PLEURA: No significant pulmonary or pleural abnormality. No pneumothorax. ADDITIONAL FINDINGS: No significant additional findings. IMPRESSION: 1. No acute findings. No interval change. Signer Name: Kusum Oropeza MD Signed: 08/28/2021 1:54 PM Workstation Name: [id number]
--- NOTE | 2021-08-28 14:14 | Cat Scan Report ---
CT abdomen pelvis w con INDICATION / CLINICAL INFORMATION: Acute abdominal pain, nausea and vomiting. TECHNIQUE: Axial CT imaging of abdomen and pelvis was obtained with IV contrast. Coronal and sagittal reformatte d imaging obtained and reviewed. All CT scans at this location are performed using CT dose reduction for ALARA by means of automated exposure control. COMPARISON: Prior CT abdomen/pelvis 05/27/2017 FINDINGS: CT abdomen with contrast demonstrates normal appearance of the liver, spleen, pancreas, kidneys, and adrenal glands. Gallbladder is unremarkable. No biliary dilatation. Abdominal aorta is unremarkable. CT pelvis with contrast demonstrates normal appearance of the appendix in the right lower quadrant. N o pelvic mass, free fluid, or focal inflammatory changes noted. In the pelvis there are some nondilated fluid-filled loops of small bowel which are nonspecific, but could potentially indicate the presence of mild enteritis. This would, of coarse, need to be correlat ed clinically. The remainder of the GI tract is unremarkable. Visualized lung bases are clear. No acute osseous abnormality noted. IMPRESSION: 1. Questionable mild enteritis. This would need to be correlated with clinical symptoms and presentat ion. 2. No other significant finding within the abdomen or pelvis. Signer Name: Kusum Oropeza MD Signed: 08/28/2021 2:10 PM Workstation Name: [id number]
--- NOTE | 2021-08-28 15:01 | Cat Scan Report ---
CT NECK 08/28/2021 HISTORY: Right-sided neck pain, fever, adenopathy. FINDINGS: Contrast enhanced CT images of the soft tissues of the neck were obtained. Images are evalu ated in the axial, coronal, and sagittal plane. There is no evidence of abnormal neck mass, fluid collection, or inflammatory change. Moderate bilate ral symmetric tonsillar lymphoid hyperplasia is present. Numerous bilateral cervical lymph nodes are present, with a benign appearance. These have maximum size of approximately 1-1 0.5 cm in the jugulod igastric region. There is a normal appearance to the submandibular and parotid glands. Vascular structures are unremarkable. There is no evidence of acute osseous abnormality. Reversal of cervical lordosis is centered at the C 4-5 level. Degenerative disc space narrowing is present at C6-7. IMPRESSION: Tonsillar lymphoid hyperplasia. No evidence of abscess. All CT scans at this location are performed using dose reduction to ALARA by means of automated expos ure control. Signer Name: Roman Bermudez MD Signed: 08/28/2021 2:57 PM Workstation Name: [id number]
--- NOTE | 2021-08-30 14:10 | Electrocardiograph Report ---
[facility] Test Date: 2021-08-28 Test Time: 11:10:31 Pat Name: NEERU SUBRAMANIAN Department: Room: Gender: F Life Scientist: SAMREEN : [id number] Requested By: NURIA GARCIA Order Number: [id number] Reading MD: Belinda Grant Measurements Intervals [place] Rate: 71 P: 62 MA: 136 QRS: 61 QRSD: 85 T: 52 QT: 406 QTc: 441 Interpretive Statements Sinus rhythm Probable left atrial enlargement No previous ECG available for comparison Electronically Signed On 08-30-2021 14:09:42 EDT by Belinda Grant
== END 2021-08-28 15:31 | disposition home or self-care (01) ==
LOC: ED 00:21
DX: A59.9 Trichomoniasis, unspecified (principal); L04.0 Acute lymphadenitis of face, head and neck; M54.2 Cervicalgia; R04.2 Hemoptysis; R10.30 Lower abdominal pain, unspecified; Z88.0 Allergy status to penicillin; Z88.6 Allergy status to analgesic agent; Z88.5 Allergy status to narcotic agent
CPT/HCPCS: 36415; 70491; 71045; 74177; 80053; 82550; 84702; 85025; 87116; 87210; 87430; 87591; 93005; 96361; 96365; 96375; 99285; C9113; J0696; J2270; J2405; J7030; Q9967